=== PATIENT | female | born 2000 | race Caucasian/White ===

== ENCOUNTER 2024-09-19 21:39 | Emergency (ER) | payer OTHER, SELFPAY ==
--- OUTSIDE RECORDS SUMMARY | 2024-09-19 21:53 | XMS REPORT | Continuity of Care Document ---
Author Name Unknown Address [address] [facility] [address] [place] [address] Organization [facility] [place] Address [address] 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 Role Phone PCP, PATIENT DOES NOT HAVE A Primary Care Physic favio Unavailable Toño ART Attending Clinician Unavailable Toño ART Attending Clinician Unavailable JOSE C MORRIS Attending Clinician Unavailable JOSE C MORRIS Attending Clinician Unavailable Jose C Parada Attending Clinician [phone] DEIDRA CROWELL Attending Clinician Unavailable MERRY MAYORGA Attending Clinician UnavailMERRY Gates Attending Clinician UnavailMARIANNE Weiss Attending Clinician UnavailMarianne Reaves CNM Attending Clinician HIRO NG Attending Clinician Unavailable HIRO NG Attending Clinician Unavailable Hiro Ng MD Attending Clinician TITO CANALES Attending Clinician Unavail able Cody GOMEZ, Abilio Banks Attending Clinician [phone] Liborio GOMEZ, Yanni Attending Clinician + [phone] WINNIE PASCUAL Attending Clinician Unavailable Ally WHCNP, Tito Link Attending Clinician + RONNY GO Attending Clinician Unavailable Edmar GOMEZ, Ronny Wahl Attending Clinician [phone] Shantell Jacques RN Attending Clinician Unavailable ALAYNA PATEL Attending Clinician Unavailabl e Ultrasound, [facility] Attending Clinician Unavaila Alayna Martins MD Attending Clinician [phone] [facility] Unavailable CLAUDIO URBANO Attending Clinician Unavailable Risk, Szf-Gutlt-Vw/High Attending Clinician Unav ailable Claudio Morgan Attending Clinician + [phone] Tatiana Cruz MD Attending Clinician +[phone] TATIANA CRUZ Attending Clinician Unavailable Charisma Garnett Attending Clinician [phone] VANGIE LEBLANC Attending Clinician Unavailable [facility] Unavailable Vangie Akins Attending Clinician [phone], [facility] Room Attending Clinician Unavaildick waters Doctor Unassigned, [place] Attending Clinician U navailable KASIA CHIU Attending Clinician Unavailab Kasia Gallardo DO Attending Clinician [phone] RUDOLPH SÁNCHEZ Attending Clinician Unavailable Rudolph Sánchez DO Attending Clinician +[phone] EDIS HERNANDEZ Attending Clinician Unavailab [facility]ending Clinician Unava ilable Edis Ash Attending Clinician + [phone] Karen Flores DO Attending Clinician [phone] LORRIE HERNANDEZ Attending Clinician Unavailable Johnnie Toledo MD Attending Clinician +[phone] BEAU GRAY Attending Clinician Unavailable Beau Gray PA-C Attending Clinician [phone] Boris Rosario MD Attending Clinician [phone] BORIS ROSARIO Attending Clinician Unavailable Abdirahman TONG, Ian Attending Clinician Unavailab RONNY Daly Admitting Clinician Unavailable JOSE C MORRIS Admitting Clinician Unavailable DEIDRA CROWELL Admitting Clinician Unavailable HIRO NG Admitting Clinician Unavailable Hiro Ng MD Admitting Clinician [phone] Ronny Go MD Admitting Clinician +[phone] KASIA CHIU Admitting Clinician Unavailab RUDOLPH Ring Admitting Clinician Unavailable Payers Payer Name Policy Type Policy Number Effective Date Expirati on Date Source [facility] [id number] 2019 00:00:00 [place] [id number] 2019 00:00:00 MEDICAID PENDING PENDING 2019 00:00:00 ALLIED BENEFIT [id number] 2018 00:00:00 Problems Condition Name Condition Details Condition Category Status Onset Date Resolution Date Last Treatment Date Treating Clinician Comments Source Anemia of mother in , antepartum Anemia of mother in , antepartum Disease Active 01-05 00:00: 00 [facility] Anemia of mother in , antepartum Anemia of mother in , antepartum Disease Active 18 00:00: 00 [facility] Depression during Depression during Disease Active 6-06 00:00: 00 [facility] History of bipolar disorder History of bipolar disorder Disease Active 08-04 00:00: 00 Overview: Formattin g of this note might be different from the original. Not on meds reports stable mood [facility] History of depression History of depression Disease Active 08-04 00:00: 00 [facility] (spontaneo us vaginal delivery) (spontaneo us vaginal delivery) Disease Active 9-09 00:00: 00 [facility] Tobacco use in Tobacco use in Disease Active 3-11 00:00: 00 Overview: Formattin g of this note might be different from the original. Reports quit x1 week ago [facility] Nicotine vapor product user Nicotine vapor product user Disease Active 3-11 00:00: 00 [facility] Nicotine vapor product user Nicotine vapor product user Disease Active 311 00:00: 00 [facility] Short interval between pregnancie s affecting in first trimester, antepartum Short interval between pregnancie s affecting in first trimester, antepartum Disease Active 2-05 00:00: 00 [facility] Tobacco use complicati ng Tobacco use complicati ng Disease Active 2-05 00:00: 00 [facility] 39 weeks gestation of 39 weeks gestation of Disease Resolve d 2022-05 0-17 00:00: 00 2023-03-28 00:00:00 2023-03-28 10:11:38 [facility] Single live Single live Disease Resolve d 2022-05 0-17 00:00: 00 2023-03-28 00:00:00 2023-03-28 10:11:36 [facility] Family history of muscular dystrophy Family history of muscular dystrophy Disease Resolve d 4-04 00:00: 00 2023-03-28 00:00:00 2023-03-28 10:11:24 Overview: Formattin g of this note might be different from the original. Reports younger brother [facility] History of miscarriag e History of miscarriag e Disease Resolve d 2022-0 3-17 00:00: 00 2023-03-28 00:00:00 2023-03-28 10:11:20 [facility] (normal spontaneou s vaginal delivery) (normal spontaneou s vaginal delivery) Disease Resolve d 9-09 00:00: 00 2023-03-28 00:00:00 2023-03-28 10:11:28 [facility] Multiparit y Multiparit y Disease Resolve d 3-11 00:00: 00 2023-03-28 00:00:00 2023-03-28 10:11:30 [facility] Supervisio n of high-risk Supervisio n of high-risk Disease Resolve d 2018-0 2-05 00:00: 00 2023-03-06 00:00:00 2023-03-06 23:22:25 [facility] Single live Single live Disease Resolve d 2019-0 9-09 00:00: 00 2022-08-04 00:00:00 2022-08-04 09:03:46 [facility] Decreased movements in third trimester Decreased movements in third trimester Disease Resolve d 2019-0 9-07 00:00: 00 2022-08-04 00:00:00 2022-08-04 09:03:26 [facility] heart rate decelerati ons affecting management of mother heart rate decelerati ons affecting management of mother Disease Resolve d 2019-0 9-07 00:00: 00 2022-08-04 00:00:00 2022-08-04 09:03:30 [facility] Leg muscle spasm Leg muscle spasm Disease Resolve d 2019-0 9-02 00:00: 00 2022-08-04 00:00:00 2022-08-04 09:03:39 [facility] Fall Fall Disease Resolve d 2019-0 6-22 00:00: 00 2022-08-04 00:00:00 2022-08-04 09:03:28 [facility] 38 weeks gestation of 38 weeks gestation of Disease Resolve d 2018-0 8-13 00:00: 00 2022-08-04 00:00:00 2022-08-04 09:03:21 [facility] Rubella non-immune status, antepartum Rubella non-immune status, antepartum Disease Resolve d 2018-0 2-06 00:00: 00 2022-08-04 00:00:00 2022-08-04 09:03:42 Overview: Formattin g of this note might be different from the original. Address pp [facility] Susceptibl e to varicella (non-immun e), currently Susceptibl e to varicella (non-immun e), currently Disease Resolve d 2018-0 2-06 00:00: 00 2022-08-04 00:00:00 2022-08-04 09:03:48 Overview: Formattin g of this note might be different from the original. Address pp [facility] Short interval between pregnancie s affecting , antepartum Short interval between pregnancie s affecting , antepartum Disease Resolve d 2018-0 2-05 00:00: 00 2022-08-04 00:00:00 2022-08-04 09:03:56 [facility]mate in correction al facility Inmate in correction al facility Disease Resolve d 2-05 00:00: 00 2022-08-04 00:00:00 2022-08-04 09:03:37 [facility] Liveborn , of workman , born in hospital by vaginal delivery Liveborn infant, of workman , born in hospital by vaginal delivery Disease Resolve d 8-14 00:00: 00 2019-01-23 00:00:00 2019-01-23 10:05:51 [facility] Normal labor Normal labor Disease Resolve d 0 8-13 00:00: 00 2019-01-23 00:00:00 2019-01-23 10:05:51 [facility] Chlamydia infection affecting Chlamydia infection affecting Disease Resolve d 206 00:00: 00 2018-12-31 00:00:00 2018-12-31 19:45:26 Overview: Pending CHIARA at next visit, repeat at 36 weeks [facility] Miscarriag e Miscarriag e Disease Resolve d 2-05 00:00: 00 2018-12-31 00:00:00 2018-12-31 19:45:22 Overview: Outside facility beta --19 [id number] 07-09 [id number] 02-06 [id number] [facility] Allergies, Adverse Reactions, Alerts Allergy Name Allergy Type Status Severity Reaction(s) Onset Date Inactive Date Treating Clinician Comments Source NO KNOWN ALLERGIE S Drug Class Active [facility] Social History Social Habit Start Date Stop Date Quantity Comments Source ASSERTION 2022-06-19 00:00:00 [facility] Gender identity [facility] Alcoholic beverage intake 2023-11-27 00:00:00 2023-11-27 00:00:00 Current non-drinker of alcohol (finding) [facility] Alcohol intake 2023-03-28 00:00:00 2023-03-28 00:00:00 Current non-drinker of alcohol (finding) [facility] Exposure to SARS-CoV-2 (event) 2022-09-09 00:00:00 2022-09-19 12:39:00 Not sure [facility] Tobacco use and exposure 2022-08-04 00:00:00 2022-08-04 00:00:00 Smokeless tobacco non-user [facility] Tobacco Comment 2022-08-04 00:00:00 2022-08-04 00:00:00 Denies vaping [facility] History of Social function 2022-08-04 00:00:00 2022-08-04 00:00:00 [facility] History of tobacco use 2022-08-04 00:00:00 Cigarette Smoker [facility] Sex assigned at 2000 00:00:00 2000 00:00:00 [facility] Smoking Status Start Date Stop Date Source Ex-smoker 2022-08-04 00:00:00 2022-08-04 00:00:00 [facility] Smokes tobacco daily 2019-07-30 00:00:00 [facility] Medications Ordered Medication Name Filled Medication Name Start Date Stop Date Current Medication? Ordering Clinician Indication Dosage Frequency Signature (SIG) Comments Components Source acetaminoph en (TYLENOL) tablet 1,000 mg 12-25 05:00: 00 12-25 04:09 :00 No 1000mg 1,000 mg, Oral, ONCE NOW, 1 dose, On Sun12/26/23 at 0000, [facility] (ZOFRAN (PF)) [facility] 4 mg 11-27 18:00: 00 11-27 17:26 :00 No 4mg 4 mg, Slow IV Push, ONCE, 1 dose, On Sun11/28/23 at 1300, [facility] cefTRIAXone (ROCEPHIN) 1,000 mg in NaCl 0.9% (NS) 100 mL MINI-BAG 11-27 18:00: 00 11-27 17:56 :00 No 1000mg 1,000 mg, IV Piggyback, ONCE, 1 dose, On Sun11/28/23 at 1300, Administer over 30 Minutes, 100 mL, Reason for Anti-Infec tive: Empiric Therapy for Suspected Infection, Empiric Therapy Site: Urine, Duration of therapy: Once (ED) [facility] methylpredn isolone sod succ (SOLU-MEDRO L) injection 125 mg 11-27 16:15: 00 11-27 18:25 :00 No 125mg 125 mg, Slow IV Push, ONCE NOW, 1 dose, On Sun11/28/23 at 1115, [facility] NaCl 0.9% (NS) bolus infusion 1,000 mL 11-27 16:15: 00 11-27 18:54 :00 No 1000mL at 999 mL/hr, 1,000 mL, IV Infusion, ONCE, 1 dose, On Sun11/28/23 at 1115, [facility] sulfamethox azole-trime thoprim 800-160 mg per tablet 11-27 00:00: 00 Yes [id number] 1{tbl} Take 1 tablet by mouth every 12 (twelve) hours. [facility] meclizine 25 mg tablet 11-27 00:00: 00 Yes [id number] 25mg Take 1 tablet by mouth every 6 (six) hours. [facility] ibuprofen 600 mg tablet 11-27 00:00: 00 Yes [id number] 600mg Take 1 tablet by mouth every 6 (six) hours as needed for Pain (scale 4-6) or Temp > 38.5 C. [facility] methocarbam oL 750 mg tablet 11-27 00:00: 00 Yes [id number] 750mg Take 1 tablet by mouth 4 (four) times daily. [facility] rho(D) immune globulin (RHOGAM) syringe 300 mcg 2022-05 06:39: 09 Yes 300ug 300 mcg, Intramuscu lar, ONCE, For 1 dose, Conditiona l, Routine [facility] HYDROcodone -acetaminop hen (NORCO 5) 5-325 mg tablet 1 tablet 2022-05 06:39: 03 Yes 1{tbl} 1 tablet, Oral, Q6HPRN, Starting on Sun03/07/23 at 013, Until Discontinu ed, Routine, Pain (scale 7-10) [facility] ibuprofen (IBU) tablet 600 mg 2022-05 06:39: 03 Yes 600mg 600 mg, Oral, Q6HPRN, Starting on Sun03/07/23 at 013, Until Discontinu ed, Routine, Pain (scale 4-6) [facility] acetaminoph en (TYLENOL) tablet 650 mg 2022-05 06:39: 03 Yes 650mg 650 mg, Oral, Q6HPRN, Starting on Sun03/07/23 at 013, Until Discontinu ed, Routine, Pain (scale 1-3) [facility] diphenhydrA MINE (BENADRYL) tablet 25 mg 2022-05 06:39: 03 Yes 25mg 25 mg, Oral, Q6HPRN, Starting on Sun03/07/23 at 013, Until Discontinu ed, Routine, Sleep, Itching [facility] ondansetron (ZOFRAN (PF)) injection 4 mg 2022-05 06:39: 03 Yes 4mg 4 mg, Slow IV Push, Q8HPRN, Starting on Sun03/07/23 at 013, Until Discontinu ed, Routine, Nausea and Vomiting (N/V) [facility] simethicone (GAS RELIEF (SIMETHICON E)) chewable tablet 160 mg 2022-05 06:39: 03 Yes 160mg 160 mg, Oral, PC+HSPRN, Starting on Sun03/07/23 at 013, Until Discontinu ed, Routine, Gas [facility] docusate (COLACE) capsule 200 mg 2022-05 06:39: 03 Yes 200mg 200 mg, Oral, QDAILYPRN, Starting on Sun03/07/23 at 0139, Until Discontinu ed, Routine, Constipati on [facility] magnesium hydroxide (MILK OF MAGNESIA) 400 mg/5 mL suspension 30 mL 2022-05 06:39: 03 Yes 30mL 30 mL, Oral, QDAILYPRN, Starting on Sun03/07/23 at 0139, Until Discontinu ed, Routine, Constipati on [facility] benzocaine- menthol (DERMOPLAST ) 20-0.5 % topical spray 2022-05 06:39: 03 Yes Topical, PRN, Starting on Sun03/07/23 at 013, Until Discontinu ed, Routine, Perineum discomfort [facility] ropivacaine 0.2 % (NAROPIN (PF)) epidural infusion 2022-05 01:37: 00 03-07 05:41 :46 No Epidural, CONTINUOUS PRN, Starting on Sun03/06/23 at 7, Until Sun03/07/23 at 004, Routine, Intra-op [facility] lidocaine-e pinephrine (XYLOCAINE W/EPINEPHRI NE) 1.5 %-1:200,000 injection 2022-05 01:33: 00 03-07 05:41 :46 No Intraderma l, ONCE INTRA PROCEDURE, Starting on Sun03/06/23 at 2032, Until Sun03/07/23 at 40, Routine, Intra-op [facility] sodium citrate-cit yaz acid (BICITRA) 500-334 mg/5 mL solution 30 mL 2022-05 00:24: 33 03-07 01:15 :00 No 30mL 30 mL, Oral, PRE-PROCED URE ONCE, 1 dose, Starting on Sun03/06/23 at 1924, Until Sun03/06/23 at 2015, Routine, Surgery/Pr ocedure [facility] lactated ringers IV infusion 500 mL 2022-05 00:22: 05 03-07 06:39 :08 No 500mL at 999 mL/hr, 500 mL, IV Infusion, PRN - SEE INSTRUCTIO NS, Starting on Sun03/06/23 at 1922, Until Sun03/07/23 at 0139, Routine [facility] D5W-LR IV infusion 1,000 mL 2022-05 00:22: 05 03-07 06:39 :08 No 1000mL at 1-125 mL/hr, IV Infusion, TITRATE, Starting on Sun03/06/23 at 1922, Until Sun03/07/23 at 0139, Routine [facility] vitamin w/FA tablet 2022-05 00:00: 00 Yes [id number] 1{tbl} Take 1 tablet by mouth in the morning. [facility] docusate 100 mg capsule 2022-05 00:00: 00 Yes [id number] 200mg Take 2 capsules by mouth once daily as needed for Constipati on. [facility] ferrous sulfate 325 mg (65 mg iron) tablet 2022-05 00:00: 00 Yes [id number] 325mg Take 1 tablet by mouth in the morning. [facility] foLIC acid 1 mg tablet 2022-05 00:00: 00 Yes [id number] 1mg Take 1 tablet by mouth in the morning. [facility] ibuprofen 600 mg tablet 2022-05 00:00: 00 Yes [id number] 600mg Take 1 tablet by mouth every 6 (six) hours as needed (Pain). Take with food or milk. [facility] ferrous sulfate 325 mg (65 mg iron) tablet 01-05 00:00: 00 03-07 00:00 :00 No [id number] 325mg Take 1 tablet by mouth in the morning and 1 tablet in the evening. [facility] ascorbic acid, vitamin C, 500 mg tablet 01-05 00:00: 00 03-07 00:00 :00 No [id number] 500mg Take 1 tablet by mouth in the morning and 1 tablet at noon and 1 tablet in the evening. [facility] ARIPiprazol e 15 mg tablet 10-19 00:00: 00 Yes 15mg Take 1 tablet by mouth at bedtime. [facility] SERTraline 100 mg tablet 10-19 00:00: 00 Yes 100mg Take 1 tablet by mouth every morning. [facility] multivitami n ( VITAMIN) tablet 4-04 00:00: 00 Yes [id number] 1{tbl} Take 1 tablet by mouth in the morning. [facility] multivitami n ( VITAMIN) tablet 404 00:00: 00 03-07 00:00 :00 No [id number] 1{tbl} Take 1 tablet by mouth in the morning. [facility] multivitami n ( VITAMIN) tablet 08-04 00:00: 00 Yes [id number] 1{tbl} Take 1 tablet by mouth in the morning. [facility] multivitami n ( VITAMIN) tablet 08-04 00:00: 00 03-07 00:00 :00 No [id number] 1{tbl} Take 1 tablet by mouth in the morning. [facility] traMADoL (ULTRAM) tablet 50 mg 01-28 17:45: 00 01-29 05:44 :00 No 50mg 50 mg, Oral, ONCE, 1 dose, On 01/28/22 at 1245, Routine [facility] ketorolac (TORADOL) tablet 10 mg 01-28 16:30: 00 01-28 15:37 :00 No 10mg 10 mg, Oral, ONCE, 1 dose, On 01/28/22 at 1130, Routine [facility] methocarbam oL (ROBAXIN) tablet 1,000 mg 01-28 15:45: 00 01-28 15:37 :00 No 1000mg 1,000 mg, Oral, ONCE, 1 dose, On 01/28/22 at 1045, BRANDON [facility] cyclobenzap rine 5 mg tablet 01-28 00:00: 00 08-04 00:00 :00 No [id number] 5mg Take 1 tablet by mouth in the morning and 1 tablet at noon and 1 tablet in the evening. [facility] HYDROcodone -acetaminop hen (NORCO) 10-325 mg tablet 1 tablet 12-05 01:59: 00 12-05 01:59 :00 No 1{tbl} 1 tablet, Oral, ONCE, 1 dose, On Sun12/04/21 at 2100, Routine [facility] iopamidol (ISOVUE 370-500 mL) injection 60 mL 12-05 01:24: 00 12-05 01:30 :00 No [id number] 60mL 60 mL, Intravenou s, ONCE, 1 dose, On Sun12/04/21 at 2030, Routine [facility] naproxen sodium 550 mg tablet 12-04 00:00: 00 08-04 00:00 :00 No [id number] 550mg Take 1 tablet by mouth in the morning and 1 tablet in the evening. Take with meals. [facility] methylPREDN ISolone 4 mg tablets 12-04 00:00: 00 08-04 00:00 :00 No [id number] Take by mouth SEE-INSTRU CTIONS. follow package directions [facility] methocarbam oL 500 mg tablet 12-04 00:00: 00 12-10 04:59 :00 No [id number] 500mg Take 1 tablet by mouth in the morning and 1 tablet at noon and 1 tablet in the evening. Do all this for 5 days. [facility] iopamidol (ISOVUE 370-500 mL) injection 100 mL 07-26 01:45: 00 07-26 00:30 :00 No [id number] 100mL 100 mL, Intravenou s, ONCE, 1 dose, On Sun07/25/21 at 1945, Routine [facility] NaCl 0.9% (NS) bolus infusion 1,000 mL 07-25 23:45: 00 07-26 01:00 :00 No 1000mL at 999 mL/hr, 1,000 mL, IV Infusion, ONCE, 1 dose, On 07/25/21 at 1745, STAT [facility] ondansetron (ZOFRAN (PF)) injection 4 mg 07-25 23:45: 00 07-25 23:45 :00 No 4mg 4 mg, Slow IV Push, ONCE, 1 dose, On 07/25/21 at 1745, Routine [facility] ibuprofen 800 mg tablet 07-25 00:00: 00 12-04 00:00 :00 No [id number] 800mg Take 1 tablet by mouth every 8 (eight) hours as needed for Pain (scale 4-6). [facility] methocarbam oL (ROBAXIN) 500 mg tablet 07-25 00:00: 00 12-04 00:00 :00 No [id number] 500mg Take 1 tablet by mouth every 6 (six) hours as needed (MUSCLE SPASM). [facility] famotidine (PEPCID AC) tablet 40 mg 07-02 23:15: 00 07-02 22:17 :00 No 40mg 40 mg, Oral, ONCE, 1 dose, [facility] 07/02/21 [facility] 1715[facility] (BENADRYL) tablet 50 mg 07-02 23:15: 00 07-02 22:16 :00 No 50mg 50 mg, Oral, ONCE, 1 dose, On 07/02/21 at 1715, BRANDON [facility] methylpredn isolone sod succ (SOLU-MEDRO L) injection 125 mg 07-02 23:15: 00 07-02 22:17 :00 No 125mg 125 mg, Intramuscu lar, ONCE, 1 dose, On 07/02/21 at 1715, STAT [facility] famotidine (PEPCID) 40 mg tablet 07-02 00:00: 00 08-04 00:00 :00 No [id number] 40mg Take 1 tablet by mouth daily. [facility] methylPREDN ISolone (MEDROL, PAULETTE,) 4 mg tablets 212 00:00: 00 12-04 00:00 :00 No [id number] Take by mouth SEE-INSTRU CTIONS. follow package directions [facility] vit calc,iron,f olic ( VITAMIN ORAL) 01-27 12:20: 01-27 00:00 :00 No Take by mouth. [facility] varicella virus vaccine live (VARIVAX (PF)) injection 0.5 mL 01-27 12:11: 01-27 14:46 :00 No .5mL 0.5 mL, Subcutaneo us, ONCE-PRIOR TO DISCHARGE, 1 dose, Starting Sun01/28/20 at 0711, Until Sun01/28/20 at 0946, Routine, Give vaccine prior to discharge [facility] docusate calcium 240 mg capsule 01-27 00:00: 00 08-04 00:00 :00 No [id number] 240mg Take 1 capsule by mouth once daily as needed for Constipati on. [facility] vitamin w/FA tablet 01-27 00:00: 00 12-04 00:00 :00 No [id number] 1{tbl} Take 1 tablet by mouth daily. [facility] ferrous sulfate 325 mg (65 mg iron) tablet 01-27 00:00: 12-04 00:00 :00 No [id number] 325mg Take 1 tablet by mouth 2 (two) times daily. [facility] ibuprofen 600 mg tablet 01-27 00:00: 00 12-04 00:00 :00 No [id number] 600mg Take 1 tablet by mouth every 6 (six) hours as needed (Pain). Take with food or milk. [facility] rho(D) immune globulin (RHOGAM) syringe 300 mcg 01-26 14:30: 33 Yes 300ug 300 mcg, Intramuscu lar, ONCE, For 1 dose, Conditiona l, Routine [facility] simethicone (GAS RELIEF (SIMETHICON E)) chewable tablet 160 mg 01-26 14:30: 29 Yes 160mg 160 mg, Oral, PC+HSPRN, Starting Sun01/27/20 at 0930, Until Discontinu ed, Routine, Gas [facility] human papillomav vac,9-karol(P F) (GARDASIL-9 ) syringe 0.5 mL 01-26 14:30: 28 Yes .5mL 0.5 mL, Intramuscu lar, ONCE-PRIOR TO DISCHARGE, 1 dose, Starting Sun01/27/20 at 0930, Until Discontinu ed, Routine, Give vaccine prior to discharge [facility] ibuprofen (IBU) tablet 600 mg 01-26 14:30: 28 Yes 600mg 600 mg, Oral, Q6HPRN, Starting Sun01/27/20 at 0930, Until Discontinu ed, Routine, Pain (scale 4-6) [facility] diphenhydrA MINE (BENADRYL) tablet 25 mg 01-26 14:30: 28 Yes 25mg 25 mg, Oral, Q6HPRN, Starting Sun01/27/20 at 0930, Until Discontinu ed, Routine, Sleep, Itching [facility] diphenhydrA MINE-0.9 % sod.chlr (BENADRYL) 25 mg/50 mL piggyback 25 mg 01-26 14:30: 28 Yes 25mg 25 mg, IV Piggyback, Q6HPRN, Starting Sun01/27/20 at 0930, Until Discontinu ed, 50 mL [facility] ondansetron (ZOFRAN (PF)) injection 4 mg 01-26 14:30: 28 Yes 4mg 4 mg, Slow IV Push, Q8HPRN, Starting Sun01/27/20 at 0930, Until Discontinu ed, Routine, Nausea and Vomiting (N/V) [facility] docusate calcium (SURFAK) capsule 240 mg 01-26 14:30: 28 Yes 240mg 240 mg, Oral, QDAILYPRN, Starting Sun01/27/20 at 0930, Until Discontinu ed, Routine, Constipati on [facility] magnesium hydroxide (MILK OF MAGNESIA) 400 mg/5 mL suspension 30 mL 01-26 14:30: 28 Yes 30mL 30 mL, Oral, QDAILYPRN, Starting Sun01/27/20 at 0930, Until Discontinu ed, Routine, Constipati on [facility] benzocaine- menthol (DERMOPLAST ) 20-0.5 % topical spray 01-26 14:30: 28 Yes Topical, PRN, Starting Sun01/27/20 at 0930, Until Discontinu ed, Routine, Perineum discomfort [facility] [facility] acetaminoph en (TYLENOL) tablet 650 mg 01-26 14:30: 27 Yes 650mg 650 mg, Oral, Q6HPRN, Starting Sun01/27/20 at 0930, Until Discontinu ed, Routine, Pain (scale 1-3) [facility] ondansetron (ZOFRAN (PF)) injection 4 mg 01-26 11:12: 00 01-26 11:12 :00 No 4mg 4 mg, Slow IV Push, ONCE, 1 dose, Sun01/27/20 at 0615, Routine [facility] acetaminoph en (TYLENOL) tablet 650 mg 01-26 10:28: 26 Yes 650mg 650 mg, Oral, Q6HPRN, Starting Sun01/27/20 at 0528, Until Discontinu ed, Routine, Pain (scale 4-6) [facility] amnioinfusi on IV infusion via PUMP 0.9 NaCL 1,000 mL 01-26 09:00: 00 01-26 08:51 :00 No 1000mL at 750 mL/hr, Intrauteri ne, ONCE, 1 dose, Sun01/27/20 at 0400, BRANDON
Ma y give up 1000 mL. & nbsp;Infus e via Intrauteri ne Pressure Catheter.& nbsp;&nbsp ;The infusion is started at 750 mL/hr by volume controlled infusion pump. "The infusion pump should be clearly labeled AMNIOINF USION.&n bsp; Once 750 mL has been infused, the infusion may be dicsontinu ed or decreased to 100 mL/hr until the liter is complete.& nbsp;&nbsp ;Notify [employer] if uterine resting tone exceeds 25 mmHg at any time during the amnioinfus ion. Obst etrics (MARY) Aminoinfus ion Orders
[facility] LR 1000 mL + oxytocin 20 units IV Solution 01-26 01:48: 13 01-26 14:30 :34 No 2mU/min at 6-120 mL/hr, IV Infusion, TITRATE, Starting Sun01/26/20 at 2047, Until Sun01/27/20 at 0930, BRANDON [facility] sodium citrate-cit yaz acid (BICITRA) 500-334 mg/5 mL solution 30 mL 01-26 01:47: 23 01-26 05:08 :00 No 30mL 30 mL, Oral, PRE-PROCED URE ONCE, 1 dose, Starting Sun01/26/20 at 2046, Until Sun01/27/20 at 0008, Routine, Surgery/Pr ocedure [facility] lactated ringers IV infusion 500 mL 01-26 01:47: 22 01-26 14:30 :34 No 500mL at 999 mL/hr, 500 mL, IV Infusion, PRN - SEE INSTRUCTIO NS, Starting Sun01/26/20 at 2046, Until Sun01/27/20 at 0930, Routine [facility] PNV 67-iron ps-folate no.1-dha (VITAFOL ULTRA) 29 mg iron- 1 mg-200 mg Cap -22 00:00: 00 01-27 00:00 :00 No [id number] 1{each} Take 1 Each by mouth daily. [facility] vit/iron fum/folic ac (RIGHT STEP VITAMINS ORAL) 07-29 18:16: 53 07-29 00:00 :00 No Take by mouth. [facility] vit calc,iron,f olic ( VITAMIN ORAL) 07-29 14:05: 09 Yes Take by mouth. [facility] vit/iron fum/folic ac (RIGHT STEP VITAMINS ORAL) 01-23 15:05: 40 Yes Take by mouth. [facility] norgestimat e-ethinyl estradiol 0.25-35 mg-mcg per tablet 01-23 00:00: 00 07-29 00:00 :00 No [id number] 1{tbl} Take 1 tablet by mouth daily. [facility] acetaminoph en (TYLENOL) tablet 1,000 mg 01-04 09:00: 00 01-04 07:49 :00 No 1000mg 1,000 mg, Oral, ONCE, 1 dose, 01/04/19 at 0400, BRANDON [facility] cephALEXin (KEFLEX) 500 mg capsule 01-04 00:00: 00 07-29 00:00 :00 No [id number] 500mg Take 1 capsule by mouth 2 (two) times daily. [facility] vit/iron fum/folic ac (RIGHT STEP VITAMINS ORAL) 01-02 21:39: 41 Yes Take by mouth. [facility] measles, mumps + rubella vac (M-M-R II) 1,000-12,50 0 TCID50/0.5 mL injection 0.5 mL 01-02 13:15: 00 01-02 14:02 :00 No .5mL 0.5 mL, Subcutaneo us, ONCE, 1 dose, Jocelyne 01/02/19 at 0815, Routine [facility] vitamin w/FA tablet 01-02 00:00: 00 07-29 00:00 :00 No [id number] 102 1{tbl} Take 1 tablet by mouth daily. [facility] docusate calcium 240 mg capsule 01-02 00:00: 00 07-29 00:00 :00 No [id number] 102 240mg Take 1 capsule by mouth once daily as needed for Constipati on. [facility] ferrous sulfate 325 mg (65 mg iron) tablet 01-02 00:00: 00 07-29 00:00 :00 No [id number] 102 325mg Take 1 tablet by mouth daily. [facility] ibuprofen 600 mg tablet 01-02 00:00: 00 07-29 00:00 :00 No [id number] 102 600mg Take 1 tablet by mouth every 6 (six) hours as needed for Pain (scale 1-3) or Pain (scale 4-6) (Pain). Take with food or milk. [facility] LR 1000 mL + oxytocin 20 units IV Solution 01-01 08:15: 00 01-01 07:38 :27 No at 999 mL/hr, IV Infusion, ONCE, 1 dose, Sun01/01/19 at 0315, Routine [facility] simethicone (GAS RELIEF) chewable tablet 160 mg 01-01 07:38: 23 Yes 160mg 160 mg, Oral, PC+HSPRN, Starting Sun01/01/19 at 023, Until Discontinu ed, Routine, Gas [facility] HYDROcodone -acetaminop hen (NORCO 5) 5-325 mg tablet 1 tablet 01-01 07:38: 22 Yes 1{tbl} 1 tablet, Oral, Q6HPRN, Starting Sun01/01/19 at 023, Until Discontinu ed, Routine, Pain (scale 7-10) [facility] acetaminoph en (TYLENOL) tablet 650 mg 01-01 07:38: 22 Yes 650mg 650 mg, Oral, Q6HPRN, Starting Sun01/01/19 at 023, Until Discontinu ed, Routine, Pain (scale 1-3) [facility] ibuprofen (IBU) tablet 600 mg 01-01 07:38: 22 Yes 600mg 600 mg, Oral, Q6HPRN, Starting Sun01/01/19 at 023, Until Discontinu ed, Routine, Pain (scale 4-6) [facility] diphenhydrA MINE (BENADRYL) tablet 25 mg 01-01 07:38: 22 Yes 25mg 25 mg, Oral, Q6HPRN, Starting Sun01/01/19 at 0238, Until Discontinu ed, Routine, Sleep, Itching [facility] ondansetron (ZOFRAN (PF)) injection 4 mg 01-01 07:38: 22 Yes 4mg 4 mg, Slow IV Push, Q8HPRN, Starting Sun01/01/19 at 237, Until Discontinu ed, Routine, Nausea and Vomiting (N/V) [facility] docusate calcium (SURFAK) capsule 240 mg 01-01 07:38: 22 Yes 240mg 240 mg, Oral, QDAILYPRN, Starting Sun01/01/19 at 237, Until Discontinu ed, Routine, Constipati on [facility] magnesium hydroxide (MILK OF MAGNESIA) 400 mg/5 mL suspension 30 mL 01-01 07:38: 22 Yes 30mL 30 mL, Oral, QDAILYPRN, Starting Sun01/01/19 at 237, Until Discontinu ed, Routine, Constipati on [facility] benzocaine- menthol (DERMOPLAST ) 20-0.5 % topical spray 01-01 07:38: 22 Yes Topical, PRN, Starting Sun01/01/19 at 237, Until Discontinu ed, Routine, Perineum discomfort [facility] lactated ringers IV infusion 500 mL 01-01 01:29: 16 01-01 07:38 :27 No 500mL at 999 mL/hr, 500 mL, IV Infusion, PRN - SEE AGNIESZKA TEMPLETON, Starting Sun12/31/18 at 2028, Until Sun01/01/19 at 237, Routine [facility] D5W-LR IV infusion 1,000 mL 01-01 00:45: 00 01-01 07:38 :27 No 1000mL at 125 mL/hr, IV Infusion, CONTINUOUS , Starting Sun12/31/18 at 1945, Until Sun01/01/19 at 237, Routine [facility] FENTanyl PF (SUBLIMAZE (PF)) injection 100 mcg 12-31 23:36: 39 01-01 07:38 :27 No 100ug 100 mcg, Slow IV Push, Q1HPRN, Starting Sun12/31/18 at 1836, Until Sun01/01/19 at 0238, Routine, Pain (scale 4-6), Pain (scale 7-10) [facility] ferrous sulfate (IRON, FERROUS SULFATE,) 325 mg (65 mg iron) tablet 11-01 00:00: 00 07-29 00:00 :00 No [id number] 325mg Take 1 tablet by mouth 2 (two) times daily. [facility] vit/iron fum/folic ac (RIGHT STEP VITAMINS ORAL) 10-31 15:51: 52 Yes Take by mouth. [facility] Immunizations Ordered Immunization Name Filled Immunization Name Date Status Comments Source TDAP (ADACEL) VACCINE 2023-12-25 23:06:00 Completed [facility] MMR 2023-12-25 23:06:00 Completed [facility] Influenza Virus Vaccine Quad .5 mL IM 6+ MO (FLUZONE/FLULAVAL/FLU ARIX) 2023-12-25 23:06:00 Completed [facility] Varicella (varivax)(chicken pox) 2023-12-25 23:06:00 Completed [facility] DTaP, Unspecified Formulation 2023-12-25 23:06:00 Completed [facility] Flu Trivalent 2023-12-25 23:06:00 Completed [facility] Influenza Virus Vaccine - Whole 2023-12-25 23:06:00 Completed [facility] HEPATITIS A 2023-12-25 23:06:00 Completed [facility] Hep B, Adol or Pedi Dosage 2023-12-25 23:06:00 Completed [facility] HIB 4 Dose Schedule 2023-12-25 23:06:00 Completed [facility] Meningococcal Polysaccharide (groups A, C, Y and W-135) conjugate vaccine (MCV4P) 2023-12-25 23:06:00 Completed [facility] Pneumococcal 7 Conjugate, PCV7 (Prevnar7) 2023-12-25 23:06:00 Completed [facility] IPV 2023-12-25 23:06:00 Completed [facility] DTaP, Unspecified Formulation 2023-11-28 10:05:00 Completed [facility] TDAP (ADACEL) VACCINE 2023-03-28 09:45:00 Completed [facility] MMR 2023-03-28 09:45:00 Completed [facility] Influenza Virus Vaccine Quad .5 mL IM 6+ MO (FLUZONE/FLULAVAL/FLU ARIX) 2023-03-28 09:45:00 Completed [facility] Varicella (varivax)(chicken pox) 2023-03-28 09:45:00 Completed [facility] DTaP, Unspecified Formulation 2023-03-28 09:45:00 Completed [facility] Flu Trivalent 2023-03-28 09:45:00 Completed [facility] Influenza Virus Vaccine - Whole 2023-03-28 09:45:00 Completed [facility] HEPATITIS A 2023-03-28 09:45:00 Completed [facility] Hep B, Adol or Pedi Dosage 2023-03-28 09:45:00 Completed [facility] HIB 4 Dose Schedule 2023-03-28 09:45:00 Completed [facility] Meningococcal Polysaccharide (groups A, C, Y and W-135) conjugate vaccine (MCV4P) 2023-03-28 09:45:00 Completed [facility] Pneumococcal 7 Conjugate, PCV7 (Prevnar7) 2023-03-28 09:45:00 Completed [facility] IPV 2023-03-28 09:45:00 Completed [facility] TDAP (ADACEL) VACCINE 2023-03-06 20:15:00 Completed [facility] MMR 2023-03-06 20:15:00 Completed [facility] Influenza Virus Vaccine Quad .5 mL IM 6+ MO (FLUZONE/FLULAVAL/FLU ARIX) 2023-03-06 20:15:00 Completed [facility] Varicella (varivax)(chicken pox) 2023-03-06 20:15:00 Completed [facility] DTaP, Unspecified Formulation 2023-03-06 20:15:00 Completed [facility] Flu Trivalent 2023-03-06 20:15:00 Completed [facility] Influenza Virus Vaccine - Whole 2023-03-06 20:15:00 Completed [facility] HEPATITIS A 2023-03-06 20:15:00 Completed [facility] Hep B, Adol or Pedi Dosage 2023-03-06 20:15:00 Completed [facility] HIB 4 Dose Schedule 2023-03-06 20:15:00 Completed [facility] Meningococcal Polysaccharide (groups A, C, Y and W-135) conjugate vaccine (MCV4P) 2023-03-06 20:15:00 Completed [facility] Pneumococcal 7 Conjugate, PCV7 (Prevnar7) 2023-03-06 20:15:00 Completed [facility] IPV 2023-03-06 20:15:00 Completed [facility] TDAP (ADACEL) VACCINE 2023-03-06 17:46:00 Completed [facility] MMR 2023-03-06 17:46:00 Completed [facility] Influenza Virus Vaccine Quad .5 mL IM 6+ MO (FLUZONE/FLULAVAL/FLU ARIX) 2023-03-06 17:46:00 Completed [facility] Varicella (varivax)(chicken pox) 2023-03-06 17:46:00 Completed [facility] DTaP, Unspecified Formulation 2023-03-06 17:46:00 Completed [facility] Flu Trivalent 2023-03-06 17:46:00 Completed [facility] Influenza Virus Vaccine - Whole 2023-03-06 17:46:00 Completed [facility] HEPATITIS A 2023-03-06 17:46:00 Completed [facility] Hep B, Adol or Pedi Dosage 2023-03-06 17:46:00 Completed [facility] HIB 4 Dose Schedule 2023-03-06 17:46:00 Completed [facility] Meningococcal Polysaccharide (groups A, C, Y and W-135) conjugate vaccine (MCV4P) 2023-03-06 17:46:00 Completed [facility] Pneumococcal 7 Conjugate, PCV7 (Prevnar7) 2023-03-06 17:46:00 Completed [facility] IPV 2023-03-06 17:46:00 Completed [facility] TDAP (ADACEL) VACCINE 2023-03-06 00:00:00 Completed [facility] MMR 2023-03-06 00:00:00 Completed [facility] Influenza Virus Vaccine Quad .5 mL IM 6+ MO (FLUZONE/FLULAVAL/FLU ARIX) 2023-03-06 00:00:00 Completed [facility] Varicella (varivax)(chicken pox) 2023-03-06 00:00:00 Completed [facility] DTaP, Unspecified Formulation 2023-03-06 00:00:00 Completed [facility] Flu Trivalent 2023-03-06 00:00:00 Completed [facility] Influenza Virus Vaccine - Whole 2023-03-06 00:00:00 Completed [facility] HEPATITIS A 2023-03-06 00:00:00 Completed [facility] Hep B, Adol or Pedi Dosage 2023-03-06 00:00:00 Completed [facility] HIB 4 Dose Schedule 2023-03-06 00:00:00 Completed [facility] Meningococcal Polysaccharide (groups A, C, Y and W-135) conjugate vaccine (MCV4P) 2023-03-06 00:00:00 Completed [facility] Pneumococcal 7 Conjugate, PCV7 (Prevnar7) 2023-03-06 00:00:00 Completed [facility] IPV 2023-03-06 00:00:00 Completed [facility] TDAP (ADACEL) VACCINE 2023-02-22 00:00:00 Completed [facility] MMR 2023-02-22 00:00:00 Completed [facility] Influenza Virus Vaccine Quad .5 mL IM 6+ MO (FLUZONE/FLULAVAL/FLU ARIX) 2023-02-22 00:00:00 Completed [facility] Varicella (varivax)(chicken pox) 2023-02-22 00:00:00 Completed [facility] DTaP, Unspecified Formulation 2023-02-22 00:00:00 Completed [facility] Flu Trivalent 2023-02-22 00:00:00 Completed [facility] Influenza Virus Vaccine - Whole 2023-02-22 00:00:00 Completed [facility] HEPATITIS A 2023-02-22 00:00:00 Completed [facility] Hep B, Adol or Pedi Dosage 2023-02-22 00:00:00 Completed [facility] HIB 4 Dose Schedule 2023-02-22 00:00:00 Completed [facility] Meningococcal Polysaccharide (groups A, C, Y and W-135) conjugate vaccine (MCV4P) 2023-02-22 00:00:00 Completed [facility] Pneumococcal 7 Conjugate, PCV7 (Prevnar7) 2023-02-22 00:00:00 Completed [facility] IPV 2023-02-22 00:00:00 Completed [facility] TDAP (ADACEL) VACCINE 2023-02-21 07:45:00 Completed [facility] MMR 2023-02-21 07:45:00 Completed [facility] Influenza Virus Vaccine Quad .5 mL IM 6+ MO (FLUZONE/FLULAVAL/FLU ARIX) 2023-02-21 07:45:00 Completed [facility] Varicella (varivax)(chicken pox) 2023-02-21 07:45:00 Completed [facility] DTaP, Unspecified Formulation 2023-02-21 07:45:00 Completed [facility] Flu Trivalent 2023-02-21 07:45:00 Completed [facility] Influenza Virus Vaccine - Whole 2023-02-21 07:45:00 Completed [facility] HEPATITIS A 2023-02-21 07:45:00 Completed [facility] Hep B, Adol or Pedi Dosage 2023-02-21 07:45:00 Completed [facility] HIB 4 Dose Schedule 2023-02-21 07:45:00 Completed [facility] Meningococcal Polysaccharide (groups A, C, Y and W-135) conjugate vaccine (MCV4P) 2023-02-21 07:45:00 Completed [facility] Pneumococcal 7 Conjugate, PCV7 (Prevnar7) 2023-02-21 07:45:00 Completed [facility] IPV 2023-02-21 07:45:00 Completed [facility] TDAP (ADACEL) VACCINE 2023-02-20 00:00:00 Completed [facility] MMR 2023-02-20 00:00:00 Completed [facility] Influenza Virus Vaccine Quad .5 mL IM 6+ MO (FLUZONE/FLULAVAL/FLU ARIX) 2023-02-20 00:00:00 Completed [facility] Varicella (varivax)(chicken pox) 2023-02-20 00:00:00 Completed [facility] DTaP, Unspecified Formulation 2023-02-20 00:00:00 Completed [facility] Flu Trivalent 2023-02-20 00:00:00 Completed [facility] Influenza Virus Vaccine - Whole 2023-02-20 00:00:00 Completed [facility] HEPATITIS A 2023-02-20 00:00:00 Completed [facility] Hep B, Adol or Pedi Dosage 2023-02-20 00:00:00 Completed [facility] HIB 4 Dose Schedule 2023-02-20 00:00:00 Completed [facility] Meningococcal Polysaccharide (groups A, C, Y and W-135) conjugate vaccine (MCV4P) 2023-02-20 00:00:00 Completed [facility] Pneumococcal 7 Conjugate, PCV7 (Prevnar7) 2023-02-20 00:00:00 Completed [facility] IPV 2023-02-20 00:00:00 Completed [facility] TDAP (ADACEL) VACCINE 2023-02-07 15:15:00 Completed [facility] MMR 2023-02-07 15:15:00 Completed [facility] Influenza Virus Vaccine Quad .5 mL IM 6+ MO (FLUZONE/FLULAVAL/FLU ARIX) 2023-02-07 15:15:00 Completed [facility] Varicella (varivax)(chicken pox) 2023-02-07 15:15:00 Completed [facility] DTaP, Unspecified Formulation 2023-02-07 15:15:00 Completed [facility] Flu Trivalent 2023-02-07 15:15:00 Completed [facility] Influenza Virus Vaccine - Whole 2023-02-07 15:15:00 Completed [facility] HEPATITIS A 2023-02-07 15:15:00 Completed [facility] Hep B, Adol or Pedi Dosage 2023-02-07 15:15:00 Completed [facility] HIB 4 Dose Schedule 2023-02-07 15:15:00 Completed [facility] Meningococcal Polysaccharide (groups A, C, Y and W-135) conjugate vaccine (MCV4P) 2023-02-07 15:15:00 Completed [facility] Pneumococcal 7 Conjugate, PCV7 (Prevnar7) 2023-02-07 15:15:00 Completed [facility] IPV 2023-02-07 15:15:00 Completed [facility] TDAP 2022-12-27 00:00:00 Completed [facility] TDAP 2022-12-27 00:00:00 Completed [facility] TDAP 2022-12-27 00:00:00 Completed [facility] TDAP 2022-12-27 00:00:00 Completed [facility] TDAP 2022-12-27 00:00:00 Completed [facility] TDAP 2022-12-27 00:00:00 Completed [facility] TDAP 2022-12-27 00:00:00 Completed [facility] TDAP 2022-12-27 00:00:00 Completed [facility] TDAP 2022-12-27 00:00:00 Completed [facility] TDAP 2022-12-27 00:00:00 Completed [facility] Varicella (varivax)(chicken pox) 2020-01-28 00:00:00 Completed [facility] Varicella (varivax)(chicken pox) 2020-01-28 00:00:00 Completed [facility] Varicella (varivax)(chicken pox) 2020-01-28 00:00:00 Completed [facility] Varicella (varivax)(chicken pox) 2020-01-28 00:00:00 Completed [facility] Varicella (varivax)(chicken pox) 2020-01-28 00:00:00 Completed [facility] Varicella (varivax)(chicken pox) 2020-01-28 00:00:00 Completed [facility] Varicella (varivax)(chicken pox) 2020-01-28 00:00:00 Completed [facility] Varicella (varivax)(chicken pox) 2020-01-28 00:00:00 Completed [facility] Varicella (varivax)(chicken pox) 2020-01-28 00:00:00 Completed [facility] Varicella (varivax)(chicken pox) 2020-01-28 00:00:00 Completed [facility] Varicella (varivax)(chicken pox) 2020-01-28 00:00:00 Completed [facility] Varicella (varivax)(chicken pox) 2020-01-28 00:00:00 Completed [facility] Varicella (varivax)(chicken pox) 2020-01-28 00:00:00 Completed [facility] Varicella (varivax)(chicken pox) 2020-01-28 00:00:00 Completed [facility] Varicella (varivax)(chicken pox) 2020-01-28 00:00:00 Completed [facility] Varicella (varivax)(chicken pox) 2020-01-28 00:00:00 Completed [facility] Varicella (varivax)(chicken pox) 2020-01-28 00:00:00 Completed [facility] Varicella (varivax)(chicken pox) 2020-01-28 00:00:00 Completed [facility] Varicella (varivax)(chicken pox) 2020-01-28 00:00:00 Completed [facility] Varicella (varivax)(chicken pox) 2020-01-28 00:00:00 Completed [facility] Varicella (varivax)(chicken pox) 2020-01-28 00:00:00 Completed [facility] Varicella (varivax)(chicken pox) 2020-01-28 00:00:00 Completed [facility] Varicella (varivax)(chicken pox) 2020-01-28 00:00:00 Completed [facility] Varicella (varivax)(chicken pox) 2020-01-28 00:00:00 Completed [facility] Varicella (varivax)(chicken pox) 2020-01-28 00:00:00 Completed [facility] Varicella (varivax)(chicken pox) 2020-01-28 00:00:00 Completed [facility] Varicella (varivax)(chicken pox) 2020-01-28 00:00:00 Completed [facility] Varicella (varivax)(chicken pox) 2020-01-28 00:00:00 Completed [facility] Varicella (varivax)(chicken pox) 2020-01-28 00:00:00 Completed [facility] Varicella (varivax)(chicken pox) 2020-01-28 00:00:00 Completed [facility] Varicella (varivax)(chicken pox) 2020-01-28 00:00:00 Completed [facility] Varicella (varivax)(chicken pox) 2020-01-28 00:00:00 Completed [facility] Varicella (varivax)(chicken pox) 2020-01-28 00:00:00 Completed [facility] Varicella (varivax)(chicken pox) 2020-01-28 00:00:00 Completed [facility] TDAP 2019-11-24 00:00:00 Completed [facility] TDAP 2019-11-24 00:00:00 Completed [facility] TDAP 2019-11-24 00:00:00 Completed [facility] TDAP 2019-11-24 00:00:00 Completed [facility] TDAP 2019-11-24 00:00:00 Completed [facility] TDAP 2019-11-24 00:00:00 Completed [facility] TDAP 2019-11-24 00:00:00 Completed [facility] TDAP 2019-11-24 00:00:00 Completed [facility] TDAP 2019-11-24 00:00:00 Completed [facility] TDAP 2019-11-24 00:00:00 Completed [facility] TDAP 2019-11-24 00:00:00 Completed [facility] TDAP 2019-11-24 00:00:00 Completed [facility] TDAP 2019-11-24 00:00:00 Completed [facility] TDAP 2019-11-24 00:00:00 Completed [facility] TDAP 2019-11-24 00:00:00 Completed [facility] TDAP 2019-11-24 00:00:00 Completed [facility] TDAP 2019-11-24 00:00:00 Completed [facility] TDAP 2019-11-24 00:00:00 Completed [facility] TDAP 2019-11-24 00:00:00 Completed [facility] TDAP 2019-11-24 00:00:00 Completed [facility] TDAP 2019-11-24 00:00:00 Completed [facility] TDAP 2019-11-24 00:00:00 Completed [facility] TDAP 2019-11-24 00:00:00 Completed [facility] TDAP 2019-11-24 00:00:00 Completed [facility] TDAP 2019-11-24 00:00:00 Completed [facility] TDAP 2019-11-24 00:00:00 Completed [facility] TDAP 2019-11-24 00:00:00 Completed [facility] TDAP 2019-11-24 00:00:00 Completed [facility] TDAP 2019-11-24 00:00:00 Completed [facility] TDAP 2019-11-24 00:00:00 Completed [facility] TDAP 2019-11-24 00:00:00 Completed [facility] TDAP 2019-11-24 00:00:00 Completed [facility] TDAP 2019-11-24 00:00:00 Completed [facility] TDAP 2019-11-24 00:00:00 Completed [facility] TDAP 2019-11-24 00:00:00 Completed [facility] TDAP 2019-11-24 00:00:00 Completed [facility] TDAP 2019-11-24 00:00:00 Completed [facility] TDAP 2019-11-24 00:00:00 Completed [facility] TDAP 2019-11-24 00:00:00 Completed [facility] TDAP 2019-11-24 00:00:00 Completed [facility] Influenza Virus Vaccine Quad .5 mL IM 6+ MO 2019-07-30 00:00:00 Completed [facility] Influenza Virus Vaccine Quad .5 mL IM 6+ MO 2019-07-30 00:00:00 Completed [facility] Influenza Virus Vaccine Quad .5 mL IM 6+ MO 2019-07-30 00:00:00 Completed [facility] Influenza Virus Vaccine Quad .5 mL IM 6+ MO 2019-07-30 00:00:00 Completed [facility] Influenza Virus Vaccine Quad .5 mL IM 6+ MO 2019-07-30 00:00:00 Completed [facility] Influenza Virus Vaccine Quad .5 mL IM 6+ MO 2019-07-30 00:00:00 Completed [facility] Influenza Virus Vaccine Quad .5 mL IM 6+ MO 2019-07-30 00:00:00 Completed [facility] Influenza Virus Vaccine Quad .5 mL IM 6+ MO 2019-07-30 00:00:00 Completed [facility] Influenza Virus Vaccine Quad .5 mL IM 6+ MO 2019-07-30 00:00:00 Completed [facility] Influenza Virus Vaccine Quad .5 mL IM 6+ MO 2019-07-30 00:00:00 Completed [facility] Influenza Virus Vaccine Quad .5 mL IM 6+ MO 2019-07-30 00:00:00 Completed [facility] Influenza Virus Vaccine Quad .5 mL IM 6+ MO 2019-07-30 00:00:00 Completed [facility] Influenza Virus Vaccine Quad .5 mL IM 6+ MO 2019-07-30 00:00:00 Completed [facility] Influenza Virus Vaccine Quad .5 mL IM 6+ MO 2019-07-30 00:00:00 Completed [facility] Influenza Virus Vaccine Quad .5 mL IM 6+ MO 2019-07-30 00:00:00 Completed [facility] Influenza Virus Vaccine Quad .5 mL IM 6+ MO 2019-07-30 00:00:00 Completed [facility] Influenza Virus Vaccine Quad .5 mL IM 6+ MO 2019-07-30 00:00:00 Completed [facility] Influenza Virus Vaccine Quad .5 mL IM 6+ MO 2019-07-30 00:00:00 Completed [facility] Influenza Virus Vaccine Quad .5 mL IM 6+ MO 2019-07-30 00:00:00 Completed [facility] Influenza Virus Vaccine Quad .5 mL IM 6+ MO 2019-07-30 00:00:00 Completed [facility] Influenza Virus Vaccine Quad .5 mL IM 6+ MO 2019-07-30 00:00:00 Completed [facility] Influenza Virus Vaccine Quad .5 mL IM 6+ MO (FLUZONE/FLULAVAL/FLU ARIX) 2019-07-30 00:00:00 Completed [facility] Influenza Virus Vaccine Quad .5 mL IM 6+ MO (FLUZONE/FLULAVAL/FLU ARIX) 2019-07-30 00:00:00 Completed [facility] Influenza Virus Vaccine Quad .5 mL IM 6+ MO (FLUZONE/FLULAVAL/FLU ARIX) 2019-07-30 00:00:00 Completed [facility] Influenza Virus Vaccine Quad .5 mL IM 6+ MO 2019-07-30 00:00:00 Completed [facility] Influenza Virus Vaccine Quad .5 mL IM 6+ MO 2019-07-30 00:00:00 Completed [facility] Influenza Virus Vaccine Quad .5 mL IM 6+ MO 2019-07-30 00:00:00 Completed [facility] Influenza Virus Vaccine Quad .5 mL IM 6+ MO 2019-07-30 00:00:00 Completed [facility] Influenza Virus Vaccine Quad .5 mL IM 6+ MO 2019-07-30 00:00:00 Completed [facility] Influenza Virus Vaccine Quad .5 mL IM 6+ MO 2019-07-30 00:00:00 Completed [facility] Influenza Virus Vaccine Quad .5 mL IM 6+ MO 2019-07-30 00:00:00 Completed [facility] Influenza Virus Vaccine Quad .5 mL IM 6+ MO 2019-07-30 00:00:00 Completed [facility] Influenza Virus Vaccine Quad .5 mL IM 6+ MO 2019-07-30 00:00:00 Completed [facility] Influenza Virus Vaccine Quad .5 mL IM 6+ MO 2019-07-30 00:00:00 Completed [facility] Influenza Virus Vaccine Quad .5 mL IM 6+ MO 2019-07-30 00:00:00 Completed [facility] Influenza Virus Vaccine Quad .5 mL IM 6+ MO 2019-07-30 00:00:00 Completed [facility] Influenza Virus Vaccine Quad .5 mL IM 6+ MO 2019-07-30 00:00:00 Completed [facility] Influenza Virus Vaccine Quad .5 mL IM 6+ MO 2019-07-30 00:00:00 Completed [facility] Influenza Virus Vaccine Quad .5 mL IM 6+ MO 2019-07-30 00:00:00 Completed [facility] Influenza Virus Vaccine Quad .5 mL IM 6+ MO 2019-07-30 00:00:00 Completed [facility] Influenza Virus Vaccine Quad .5 mL IM 6+ MO 2019-07-30 00:00:00 Completed [facility] Influenza Virus Vaccine Quad .5 mL IM 6+ MO 2019-07-30 00:00:00 Completed [facility] Influenza Virus Vaccine Quad .5 mL IM 6+ MO 2019-07-30 00:00:00 Completed [facility] Influenza Virus Vaccine Quad .5 mL IM 6+ MO 2019-07-30 00:00:00 Completed [facility] Influenza Virus Vaccine Quad .5 mL IM 6+ MO 2019-07-30 00:00:00 Completed [facility] Influenza Virus Vaccine Quad .5 mL IM 6+ MO 2019-07-30 00:00:00 Completed [facility] MMR 2019-01-02 00:00:00 Completed [facility] MMR 2019-01-02 00:00:00 Completed [facility] MMR 2019-01-02 00:00:00 Completed [facility] MMR 2019-01-02 00:00:00 Completed [facility] MMR 2019-01-02 00:00:00 Completed [facility] MMR 2019-01-02 00:00:00 Completed [facility] MMR 2019-01-02 00:00:00 Completed [facility] MMR 2019-01-02 00:00:00 Completed [facility] MMR 2019-01-02 00:00:00 Completed [facility] MMR 2019-01-02 00:00:00 Completed [facility] MMR 2019-01-02 00:00:00 Completed [facility] MMR 2019-01-02 00:00:00 Completed [facility] MMR 2019-01-02 00:00:00 Completed [facility] MMR 2019-01-02 00:00:00 Completed [facility] MMR 2019-01-02 00:00:00 Completed [facility] MMR 2019-01-02 00:00:00 Completed [facility] MMR 2019-01-02 00:00:00 Completed [facility] MMR 2019-01-02 00:00:00 Completed [facility] MMR 2019-01-02 00:00:00 Completed [facility] MMR 2019-01-02 00:00:00 Completed [facility] MMR 2019-01-02 00:00:00 Completed [facility] MMR 2019-01-02 00:00:00 Completed [facility] MMR 2019-01-02 00:00:00 Completed [facility] MMR 2019-01-02 00:00:00 Completed [facility] MMR 2019-01-02 00:00:00 Completed [facility] MMR 2019-01-02 00:00:00 Completed [facility] MMR 2019-01-02 00:00:00 Completed [facility] MMR 2019-01-02 00:00:00 Completed [facility] MMR 2019-01-02 00:00:00 Completed [facility] MMR 2019-01-02 00:00:00 Completed [facility] MMR 2019-01-02 00:00:00 Completed [facility] MMR 2019-01-02 00:00:00 Completed [facility] MMR 2019-01-02 00:00:00 Completed [facility] MMR 2019-01-02 00:00:00 Completed [facility] MMR 2019-01-02 00:00:00 Completed [facility] MMR 2019-01-02 00:00:00 Completed [facility] MMR 2019-01-02 00:00:00 Completed [facility] MMR 2019-01-02 00:00:00 Completed [facility] MMR 2019-01-02 00:00:00 Completed [facility] MMR 2019-01-02 00:00:00 Completed [facility] MMR 2019-01-02 00:00:00 Completed [facility] MMR 2019-01-02 00:00:00 Completed [facility] MMR 2019-01-02 00:00:00 Completed [facility] MMR 2019-01-02 00:00:00 Completed [facility] MMR 2019-01-02 00:00:00 Completed [facility] MMR 2019-01-02 00:00:00 Completed [facility] MMR 2019-01-02 00:00:00 Completed [facility] MMR 2019-01-02 00:00:00 Completed [facility] MMR 2019-01-02 00:00:00 Completed [facility] MMR 2019-01-02 00:00:00 Completed [facility] MMR 2019-01-02 00:00:00 Completed [facility] MMR 2019-01-02 00:00:00 Completed [facility] MMR 2019-01-02 00:00:00 Completed [facility] TDAP (ADACEL) VACCINE 2018-10-10 00:00:00 Completed [facility] TDAP (ADACEL) VACCINE 2018-10-10 00:00:00 Completed [facility] TDAP (ADACEL) VACCINE 2018-10-10 00:00:00 Completed [facility] TDAP (ADACEL) VACCINE 2018-10-10 00:00:00 Completed [facility] TDAP (ADACEL) VACCINE 2018-10-10 00:00:00 Completed [facility] TDAP (ADACEL) VACCINE 2018-10-10 00:00:00 Completed [facility] TDAP (ADACEL) VACCINE 2018-10-10 00:00:00 Completed [facility] TDAP (ADACEL) VACCINE 2018-10-10 00:00:00 Completed [facility] TDAP (ADACEL) VACCINE 2018-10-10 00:00:00 Completed [facility] TDAP (ADACEL) VACCINE 2018-10-10 00:00:00 Completed [facility] TDAP (ADACEL) VACCINE 2018-10-10 00:00:00 Completed [facility] TDAP (ADACEL) VACCINE 2018-10-10 00:00:00 Completed [facility] TDAP (ADACEL) VACCINE 2018-10-10 00:00:00 Completed [facility] TDAP (ADACEL) VACCINE 2018-10-10 00:00:00 Completed [facility] TDAP (ADACEL) VACCINE 2018-10-10 00:00:00 Completed [facility] TDAP (ADACEL) VACCINE 2018-10-10 00:00:00 Completed [facility] TDAP (ADACEL) VACCINE 2018-10-10 00:00:00 Completed [facility] TDAP (ADACEL) VACCINE 2018-10-10 00:00:00 Completed [facility] TDAP (ADACEL) VACCINE 2018-10-10 00:00:00 Completed [facility] TDAP (ADACEL) VACCINE 2018-10-10 00:00:00 Completed [facility] TDAP (ADACEL) VACCINE 2018-10-10 00:00:00 Completed [facility] TDAP (ADACEL) VACCINE 2018-10-10 00:00:00 Completed [facility] TDAP (ADACEL) VACCINE 2018-10-10 00:00:00 Completed [facility] TDAP (ADACEL) VACCINE 2018-10-10 00:00:00 Completed [facility] TDAP (ADACEL) VACCINE 2018-10-10 00:00:00 Completed [facility] TDAP (ADACEL) VACCINE 2018-10-10 00:00:00 Completed [facility] TDAP (ADACEL) VACCINE 2018-10-10 00:00:00 Completed [facility] TDAP (ADACEL) VACCINE 2018-10-10 00:00:00 Completed [facility] TDAP (ADACEL) VACCINE 2018-10-10 00:00:00 Completed [facility] TDAP (ADACEL) VACCINE 2018-10-10 00:00:00 Completed [facility] TDAP (ADACEL) VACCINE 2018-10-10 00:00:00 Completed [facility] TDAP (ADACEL) VACCINE 2018-10-10 00:00:00 Completed [facility] TDAP (ADACEL) VACCINE 2018-10-10 00:00:00 Completed [facility] TDAP (ADACEL) VACCINE 2018-10-10 00:00:00 Completed [facility] TDAP (ADACEL) VACCINE 2018-10-10 00:00:00 Completed [facility] TDAP (ADACEL) VACCINE 2018-10-10 00:00:00 Completed [facility] TDAP (ADACEL) VACCINE 2018-10-10 00:00:00 Completed [facility] TDAP (ADACEL) VACCINE 2018-10-10 00:00:00 Completed [facility] TDAP (ADACEL) VACCINE 2018-10-10 00:00:00 Completed [facility] TDAP (ADACEL) VACCINE 2018-10-10 00:00:00 Completed [facility] TDAP (ADACEL) VACCINE 2018-10-10 00:00:00 Completed [facility] TDAP (ADACEL) VACCINE 2018-10-10 00:00:00 Completed [facility] TDAP (ADACEL) VACCINE 2018-10-10 00:00:00 Completed [facility] TDAP (ADACEL) VACCINE 2018-10-10 00:00:00 Completed [facility] TDAP (ADACEL) VACCINE 2018-10-10 00:00:00 Completed [facility] TDAP (ADACEL) VACCINE 2018-10-10 00:00:00 Completed [facility] TDAP (ADACEL) VACCINE 2018-10-10 00:00:00 Completed [facility] TDAP (ADACEL) VACCINE 2018-10-10 00:00:00 Completed [facility] TDAP (ADACEL) VACCINE 2018-10-10 00:00:00 Completed [facility] TDAP (ADACEL) VACCINE 2018-10-10 00:00:00 Completed [facility] TDAP (ADACEL) VACCINE 2018-10-10 00:00:00 Completed [facility] TDAP (ADACEL) VACCINE 2018-10-10 00:00:00 Completed [facility] TDAP (ADACEL) VACCINE 2018-10-10 00:00:00 Completed [facility] TDAP (ADACEL) VACCINE 2018-10-10 00:00:00 Completed [facility] TDAP (ADACEL) VACCINE 2018-10-10 00:00:00 Completed [facility] TDAP (ADACEL) VACCINE 2018-10-10 00:00:00 Completed [facility] TDAP (ADACEL) VACCINE 2018-10-10 00:00:00 Completed [facility] TDAP (ADACEL) VACCINE 2018-10-10 00:00:00 Completed [facility] Flu Trivalent 2016-06-29 00:00:00 Completed [facility] Flu Trivalent 2016-06-29 00:00:00 Completed [facility] Flu Trivalent 2016-06-29 00:00:00 Completed [facility] Flu Trivalent 2016-06-29 00:00:00 Completed [facility] Flu Trivalent 2016-06-29 00:00:00 Completed [facility] Flu Trivalent 2016-06-29 00:00:00 Completed [facility] Flu Trivalent 2016-06-29 00:00:00 Completed [facility] Flu Trivalent 2016-06-29 00:00:00 Completed [facility] Flu Trivalent 2016-06-29 00:00:00 Completed [facility] Flu Trivalent 2016-06-29 00:00:00 Completed [facility] Flu Trivalent 2016-06-29 00:00:00 Completed [facility] Flu Trivalent 2016-06-29 00:00:00 Completed [facility] Flu Trivalent 2016-06-29 00:00:00 Completed [facility] Flu Trivalent 2016-06-29 00:00:00 Completed [facility] Flu Trivalent 2016-06-29 00:00:00 Completed [facility] Flu Trivalent 2016-06-29 00:00:00 Completed [facility] Flu Trivalent 2016-06-29 00:00:00 Completed [facility] Flu Trivalent 2016-06-29 00:00:00 Completed [facility] Flu Trivalent 2016-06-29 00:00:00 Completed [facility] Flu Trivalent 2016-06-29 00:00:00 Completed [facility] Flu Trivalent 2016-06-29 00:00:00 Completed [facility] Flu Trivalent 2016-06-29 00:00:00 Completed [facility] Flu Trivalent 2016-06-29 00:00:00 Completed [facility] Meningococcal Polysaccharide (groups A, C, Y and W-135) conjugate vaccine (MCV4P) 2012-10-11 00:00:00 Completed [facility] TDAP 2012-10-11 00:00:00 Completed [facility] Varicella (varivax)(chicken pox) 2012-10-11 00:00:00 Completed [facility] Meningococcal Polysaccharide (groups A, C, Y and W-135) conjugate vaccine (MCV4P) 2012-10-11 00:00:00 Completed [facility] TDAP 2012-10-11 00:00:00 Completed [facility] Varicella (varivax)(chicken pox) 2012-10-11 00:00:00 Completed [facility] Meningococcal Polysaccharide (groups A, C, Y and W-135) conjugate vaccine (MCV4P) 2012-10-11 00:00:00 Completed [facility] TDAP 2012-10-11 00:00:00 Completed [facility] Varicella (varivax)(chicken pox) 2012-10-11 00:00:00 Completed [facility] Meningococcal Polysaccharide (groups A, C, Y and W-135) conjugate vaccine (MCV4P) 2012-10-11 00:00:00 Completed [facility] TDAP 2012-10-11 00:00:00 Completed [facility] Varicella (varivax)(chicken pox) 2012-10-11 00:00:00 Completed [facility] Meningococcal Polysaccharide (groups A, C, Y and W-135) conjugate vaccine (MCV4P) 2012-10-11 00:00:00 Completed [facility] TDAP 2012-10-11 00:00:00 Completed [facility] Varicella (varivax)(chicken pox) 2012-10-11 00:00:00 Completed [facility] Meningococcal Polysaccharide (groups A, C, Y and W-135) conjugate vaccine (MCV4P) 2012-10-11 00:00:00 Completed [facility] TDAP 2012-10-11 00:00:00 Completed [facility] Varicella (varivax)(chicken pox) 2012-10-11 00:00:00 Completed [facility] Meningococcal Polysaccharide (groups A, C, Y and W-135) conjugate vaccine (MCV4P) 2012-10-11 00:00:00 Completed [facility] TDAP 2012-10-11 00:00:00 Completed [facility] Varicella (varivax)(chicken pox) 2012-10-11 00:00:00 Completed [facility] Meningococcal Polysaccharide (groups A, C, Y and W-135) conjugate vaccine (MCV4P) 2012-10-11 00:00:00 Completed [facility] TDAP 2012-10-11 00:00:00 Completed [facility] Varicella (varivax)(chicken pox) 2012-10-11 00:00:00 Completed [facility] Meningococcal Polysaccharide (groups A, C, Y and W-135) conjugate vaccine (MCV4P) 2012-10-11 00:00:00 Completed [facility] TDAP 2012-10-11 00:00:00 Completed [facility] Varicella (varivax)(chicken pox) 2012-10-11 00:00:00 Completed [facility] Meningococcal Polysaccharide (groups A, C, Y and W-135) conjugate vaccine (MCV4P) 2012-10-11 00:00:00 Completed [facility] TDAP 2012-10-11 00:00:00 Completed [facility] Varicella (varivax)(chicken pox) 2012-10-11 00:00:00 Completed [facility] Meningococcal Polysaccharide (groups A, C, Y and W-135) conjugate vaccine (MCV4P) 2012-10-11 00:00:00 Completed [facility] TDAP 2012-10-11 00:00:00 Completed [facility] Varicella (varivax)(chicken pox) 2012-10-11 00:00:00 Completed [facility] Meningococcal Polysaccharide (groups A, C, Y and W-135) conjugate vaccine (MCV4P) 2012-10-11 00:00:00 Completed [facility] TDAP 2012-10-11 00:00:00 Completed [facility] Varicella (varivax)(chicken pox) 2012-10-11 00:00:00 Completed [facility] Meningococcal Polysaccharide (groups A, C, Y and W-135) conjugate vaccine (MCV4P) 2012-10-11 00:00:00 Completed [facility] TDAP 2012-10-11 00:00:00 Completed [facility] Varicella (varivax)(chicken pox) 2012-10-11 00:00:00 Completed [facility] Meningococcal Polysaccharide (groups A, C, Y and W-135) conjugate vaccine (MCV4P) 2012-10-11 00:00:00 Completed [facility] TDAP 2012-10-11 00:00:00 Completed [facility] Varicella (varivax)(chicken pox) 2012-10-11 00:00:00 Completed [facility] Meningococcal Polysaccharide (groups A, C, Y and W-135) conjugate vaccine (MCV4P) 2012-10-11 00:00:00 Completed [facility] TDAP 2012-10-11 00:00:00 Completed [facility] Varicella (varivax)(chicken pox) 2012-10-11 00:00:00 Completed [facility] Meningococcal Polysaccharide (groups A, C, Y and W-135) conjugate vaccine (MCV4P) 2012-10-11 00:00:00 Completed [facility] TDAP 2012-10-11 00:00:00 Completed [facility] Varicella (varivax)(chicken pox) 2012-10-11 00:00:00 Completed [facility] Meningococcal Polysaccharide (groups A, C, Y and W-135) conjugate vaccine (MCV4P) 2012-10-11 00:00:00 Completed [facility] TDAP 2012-10-11 00:00:00 Completed [facility] Varicella (varivax)(chicken pox) 2012-10-11 00:00:00 Completed [facility] Meningococcal Polysaccharide (groups A, C, Y and W-135) conjugate vaccine (MCV4P) 2012-10-11 00:00:00 Completed [facility] TDAP 2012-10-11 00:00:00 Completed [facility] Varicella (varivax)(chicken pox) 2012-10-11 00:00:00 Completed [facility] Meningococcal Polysaccharide (groups A, C, Y and W-135) conjugate vaccine (MCV4P) 2012-10-11 00:00:00 Completed [facility] TDAP 2012-10-11 00:00:00 Completed [facility] Varicella (varivax)(chicken pox) 2012-10-11 00:00:00 Completed [facility] Meningococcal Polysaccharide (groups A, C, Y and W-135) conjugate vaccine (MCV4P) 2012-10-11 00:00:00 Completed [facility] TDAP 2012-10-11 00:00:00 Completed [facility] Varicella (varivax)(chicken pox) 2012-10-11 00:00:00 Completed [facility] Meningococcal Polysaccharide (groups A, C, Y and W-135) conjugate vaccine (MCV4P) 2012-10-11 00:00:00 Completed [facility] TDAP 2012-10-11 00:00:00 Completed [facility] Varicella (varivax)(chicken pox) 2012-10-11 00:00:00 Completed [facility] Meningococcal Polysaccharide (groups A, C, Y and W-135) conjugate vaccine (MCV4P) 2012-10-11 00:00:00 Completed [facility] TDAP 2012-10-11 00:00:00 Completed [facility] Varicella (varivax)(chicken pox) 2012-10-11 00:00:00 Completed [facility] Meningococcal Polysaccharide (groups A, C, Y and W-135) conjugate vaccine (MCV4P) 2012-10-11 00:00:00 Completed [facility] TDAP 2012-10-11 00:00:00 Completed [facility] Varicella (varivax)(chicken pox) 2012-10-11 00:00:00 Completed [facility] Influenza Virus Vaccine - Whole 2012-06-06 00:00:00 Completed [facility] Influenza Virus Vaccine - Whole 2012-06-06 00:00:00 Completed [facility] Influenza Virus Vaccine - Whole 2012-06-06 00:00:00 Completed [facility] Influenza Virus Vaccine - Whole 2012-06-06 00:00:00 Completed [facility] Influenza Virus Vaccine - Whole 2012-06-06 00:00:00 Completed [facility] Influenza Virus Vaccine - Whole 2012-06-06 00:00:00 Completed [facility] Influenza Virus Vaccine - Whole 2012-06-06 00:00:00 Completed [facility] Influenza Virus Vaccine - Whole 2012-06-06 00:00:00 Completed [facility] Influenza Virus Vaccine - Whole 2012-06-06 00:00:00 Completed [facility] Influenza Virus Vaccine - Whole 2012-06-06 00:00:00 Completed [facility] Influenza Virus Vaccine - Whole 2012-06-06 00:00:00 Completed [facility] Influenza Virus Vaccine - Whole 2012-06-06 00:00:00 Completed [facility] Influenza Virus Vaccine - Whole 2012-06-06 00:00:00 Completed [facility] Influenza Virus Vaccine - Whole 2012-06-06 00:00:00 Completed [facility] Influenza Virus Vaccine - Whole 2012-06-06 00:00:00 Completed [facility] Influenza Virus Vaccine - Whole 2012-06-06 00:00:00 Completed [facility] Influenza Virus Vaccine - Whole 2012-06-06 00:00:00 Completed [facility] Influenza Virus Vaccine - Whole 2012-06-06 00:00:00 Completed [facility] Influenza Virus Vaccine - Whole 2012-06-06 00:00:00 Completed [facility] Influenza Virus Vaccine - Whole 2012-06-06 00:00:00 Completed [facility] Influenza Virus Vaccine - Whole 2012-06-06 00:00:00 Completed [facility] Influenza Virus Vaccine - Whole 2012-06-06 00:00:00 Completed [facility] Influenza Virus Vaccine - Whole 2012-06-06 00:00:00 Completed [facility] HEPATITIS A 2005-12-21 00:00:00 Completed [facility] HEPATITIS A 2005-12-21 00:00:00 Completed [facility] HEPATITIS A 2005-12-21 00:00:00 Completed [facility] HEPATITIS A 2005-12-21 00:00:00 Completed [facility] HEPATITIS A 2005-12-21 00:00:00 Completed [facility] HEPATITIS A 2005-12-21 00:00:00 Completed [facility] HEPATITIS A 2005-12-21 00:00:00 Completed [facility] HEPATITIS A 2005-12-21 00:00:00 Completed [facility] HEPATITIS A 2005-12-21 00:00:00 Completed [facility] HEPATITIS A 2005-12-21 00:00:00 Completed [facility] HEPATITIS A 2005-12-21 00:00:00 Completed [facility] HEPATITIS A 2005-12-21 00:00:00 Completed [facility] HEPATITIS A 2005-12-21 00:00:00 Completed [facility] HEPATITIS A 2005-12-21 00:00:00 Completed [facility] HEPATITIS A 2005-12-21 00:00:00 Completed [facility] HEPATITIS A 2005-12-21 00:00:00 Completed [facility] HEPATITIS A 2005-12-21 00:00:00 Completed [facility] HEPATITIS A 2005-12-21 00:00:00 Completed [facility] HEPATITIS A 2005-12-21 00:00:00 Completed [facility] HEPATITIS A 2005-12-21 00:00:00 Completed [facility] HEPATITIS A 2005-12-21 00:00:00 Completed [facility] HEPATITIS A 2005-12-21 00:00:00 Completed [facility] HEPATITIS A 2005-12-21 00:00:00 Completed [facility] DTaP, Unspecified Formulation 2005-02-21 00:00:00 Completed [facility] HEPATITIS A 2005-02-21 00:00:00 Completed [facility] MMR 2005-02-21 00:00:00 Completed [facility] IPV 2005-02-21 00:00:00 Completed [facility] DTaP, Unspecified Formulation 2005-02-21 00:00:00 Completed [facility] HEPATITIS A 2005-02-21 00:00:00 Completed [facility] MMR 2005-02-21 00:00:00 Completed [facility] IPV 2005-02-21 00:00:00 Completed [facility] DTaP, Unspecified Formulation 2005-02-21 00:00:00 Completed [facility] HEPATITIS A 2005-02-21 00:00:00 Completed [facility] MMR 2005-02-21 00:00:00 Completed [facility] IPV 2005-02-21 00:00:00 Completed [facility] DTaP, Unspecified Formulation 2005-02-21 00:00:00 Completed [facility] HEPATITIS A 2005-02-21 00:00:00 Completed [facility] MMR 2005-02-21 00:00:00 Completed [facility] IPV 2005-02-21 00:00:00 Completed [facility] DTaP, Unspecified Formulation 2005-02-21 00:00:00 Completed [facility] HEPATITIS A 2005-02-21 00:00:00 Completed [facility] MMR 2005-02-21 00:00:00 Completed [facility] IPV 2005-02-21 00:00:00 Completed [facility] DTaP, Unspecified Formulation 2005-02-21 00:00:00 Completed [facility] HEPATITIS A 2005-02-21 00:00:00 Completed [facility] MMR 2005-02-21 00:00:00 Completed [facility] IPV 2005-02-21 00:00:00 Completed [facility] DTaP, Unspecified Formulation 2005-02-21 00:00:00 Completed [facility] HEPATITIS A 2005-02-21 00:00:00 Completed [facility] MMR 2005-02-21 00:00:00 Completed [facility] IPV 2005-02-21 00:00:00 Completed [facility] DTaP, Unspecified Formulation 2005-02-21 00:00:00 Completed [facility] HEPATITIS A 2005-02-21 00:00:00 Completed [facility] MMR 2005-02-21 00:00:00 Completed [facility] IPV 2005-02-21 00:00:00 Completed [facility] DTaP, Unspecified Formulation 2005-02-21 00:00:00 Completed [facility] HEPATITIS A 2005-02-21 00:00:00 Completed [facility] MMR 2005-02-21 00:00:00 Completed [facility] IPV 2005-02-21 00:00:00 Completed [facility] DTaP, Unspecified Formulation 2005-02-21 00:00:00 Completed [facility] HEPATITIS A 2005-02-21 00:00:00 Completed [facility] MMR 2005-02-21 00:00:00 Completed [facility] IPV 2005-02-21 00:00:00 Completed [facility] DTaP, Unspecified Formulation 2005-02-21 00:00:00 Completed [facility] HEPATITIS A 2005-02-21 00:00:00 Completed [facility] MMR 2005-02-21 00:00:00 Completed [facility] IPV 2005-02-21 00:00:00 Completed [facility] DTaP, Unspecified Formulation 2005-02-21 00:00:00 Completed [facility] HEPATITIS A 2005-02-21 00:00:00 Completed [facility] MMR 2005-02-21 00:00:00 Completed [facility] IPV 2005-02-21 00:00:00 Completed [facility] DTaP, Unspecified Formulation 2005-02-21 00:00:00 Completed [facility] HEPATITIS A 2005-02-21 00:00:00 Completed [facility] MMR 2005-02-21 00:00:00 Completed [facility] IPV 2005-02-21 00:00:00 Completed [facility] DTaP, Unspecified Formulation 2005-02-21 00:00:00 Completed [facility] HEPATITIS A 2005-02-21 00:00:00 Completed [facility] MMR 2005-02-21 00:00:00 Completed [facility] IPV 2005-02-21 00:00:00 Completed [facility] DTaP, Unspecified Formulation 2005-02-21 00:00:00 Completed [facility] HEPATITIS A 2005-02-21 00:00:00 Completed [facility] MMR 2005-02-21 00:00:00 Completed [facility] IPV 2005-02-21 00:00:00 Completed [facility] DTaP, Unspecified Formulation 2005-02-21 00:00:00 Completed [facility] HEPATITIS A 2005-02-21 00:00:00 Completed [facility] MMR 2005-02-21 00:00:00 Completed [facility] IPV 2005-02-21 00:00:00 Completed [facility] DTaP, Unspecified Formulation 2005-02-21 00:00:00 Completed [facility] HEPATITIS A 2005-02-21 00:00:00 Completed [facility] MMR 2005-02-21 00:00:00 Completed [facility] IPV 2005-02-21 00:00:00 Completed [facility] DTaP, Unspecified Formulation 2005-02-21 00:00:00 Completed [facility] HEPATITIS A 2005-02-21 00:00:00 Completed [facility] MMR 2005-02-21 00:00:00 Completed [facility] IPV 2005-02-21 00:00:00 Completed [facility] DTaP, Unspecified Formulation 2005-02-21 00:00:00 Completed [facility] HEPATITIS A 2005-02-21 00:00:00 Completed [facility] MMR 2005-02-21 00:00:00 Completed [facility] IPV 2005-02-21 00:00:00 Completed [facility] DTaP, Unspecified Formulation 2005-02-21 00:00:00 Completed [facility] HEPATITIS A 2005-02-21 00:00:00 Completed [facility] MMR 2005-02-21 00:00:00 Completed [facility] IPV 2005-02-21 00:00:00 Completed [facility] DTaP, Unspecified Formulation 2005-02-21 00:00:00 Completed [facility] HEPATITIS A 2005-02-21 00:00:00 Completed [facility] MMR 2005-02-21 00:00:00 Completed [facility] IPV 2005-02-21 00:00:00 Completed [facility] DTaP, Unspecified Formulation 2005-02-21 00:00:00 Completed [facility] HEPATITIS A 2005-02-21 00:00:00 Completed [facility] MMR 2005-02-21 00:00:00 Completed [facility] IPV 2005-02-21 00:00:00 Completed [facility] DTaP, Unspecified Formulation 2005-02-21 00:00:00 Completed [facility] HEPATITIS A 2005-02-21 00:00:00 Completed [facility] MMR 2005-02-21 00:00:00 Completed [facility] IPV 2005-02-21 00:00:00 Completed [facility] DTaP, Unspecified Formulation 2004-02-05 00:00:00 Completed [facility] HIB 4 Dose Schedule 2004-02-05 00:00:00 Completed [facility] DTaP, Unspecified Formulation 2004-02-05 00:00:00 Completed [facility] HIB 4 Dose Schedule 2004-02-05 00:00:00 Completed [facility] DTaP, Unspecified Formulation 2004-02-05 00:00:00 Completed [facility] HIB 4 Dose Schedule 2004-02-05 00:00:00 Completed [facility] DTaP, Unspecified Formulation 2004-02-05 00:00:00 Completed [facility] HIB 4 Dose Schedule 2004-02-05 00:00:00 Completed [facility] DTaP, Unspecified Formulation 2004-02-05 00:00:00 Completed [facility] HIB 4 Dose Schedule 2004-02-05 00:00:00 Completed [facility] DTaP, Unspecified Formulation 2004-02-05 00:00:00 Completed [facility] HIB 4 Dose Schedule 2004-02-05 00:00:00 Completed [facility] DTaP, Unspecified Formulation 2004-02-05 00:00:00 Completed [facility] HIB 4 Dose Schedule 2004-02-05 00:00:00 Completed [facility] DTaP, Unspecified Formulation 2004-02-05 00:00:00 Completed [facility] HIB 4 Dose Schedule 2004-02-05 00:00:00 Completed [facility] DTaP, Unspecified Formulation 2004-02-05 00:00:00 Completed [facility] HIB 4 Dose Schedule 2004-02-05 00:00:00 Completed [facility] DTaP, Unspecified Formulation 2004-02-05 00:00:00 Completed [facility] HIB 4 Dose Schedule 2004-02-05 00:00:00 Completed [facility] DTaP, Unspecified Formulation 2004-02-05 00:00:00 Completed [facility] HIB 4 Dose Schedule 2004-02-05 00:00:00 Completed [facility] DTaP, Unspecified Formulation 2004-02-05 00:00:00 Completed [facility] HIB 4 Dose Schedule 2004-02-05 00:00:00 Completed [facility] DTaP, Unspecified Formulation 2004-02-05 00:00:00 Completed [facility] HIB 4 Dose Schedule 2004-02-05 00:00:00 Completed [facility] DTaP, Unspecified Formulation 2004-02-05 00:00:00 Completed [facility] HIB 4 Dose Schedule 2004-02-05 00:00:00 Completed [facility] DTaP, Unspecified Formulation 2004-02-05 00:00:00 Completed [facility] HIB 4 Dose Schedule 2004-02-05 00:00:00 Completed [facility] DTaP, Unspecified Formulation 2004-02-05 00:00:00 Completed [facility] HIB 4 Dose Schedule 2004-02-05 00:00:00 Completed [facility] DTaP, Unspecified Formulation 2004-02-05 00:00:00 Completed [facility] HIB 4 Dose Schedule 2004-02-05 00:00:00 Completed [facility] DTaP, Unspecified Formulation 2004-02-05 00:00:00 Completed [facility] HIB 4 Dose Schedule 2004-02-05 00:00:00 Completed [facility] DTaP, Unspecified Formulation 2004-02-05 00:00:00 Completed [facility] HIB 4 Dose Schedule 2004-02-05 00:00:00 Completed [facility] DTaP, Unspecified Formulation 2004-02-05 00:00:00 Completed [facility] HIB 4 Dose Schedule 2004-02-05 00:00:00 Completed [facility] DTaP, Unspecified Formulation 2004-02-05 00:00:00 Completed [facility] HIB 4 Dose Schedule 2004-02-05 00:00:00 Completed [facility] DTaP, Unspecified Formulation 2004-02-05 00:00:00 Completed [facility] HIB 4 Dose Schedule 2004-02-05 00:00:00 Completed [facility] DTaP, Unspecified Formulation 2004-02-05 00:00:00 Completed [facility] HIB 4 Dose Schedule 2004-02-05 00:00:00 Completed [facility] DTaP, Unspecified Formulation 2000 00:00:00 Completed [facility] HIB 4 Dose Schedule 2000 00:00:00 Completed [facility] Pneumococcal 7 Conjugate, PCV7 (Prevnar7) 2000 00:00:00 Completed [facility] IPV 2000 00:00:00 Completed [facility] DTaP, Unspecified Formulation 2000 00:00:00 Completed [facility] HIB 4 Dose Schedule 2000 00:00:00 Completed [facility] Pneumococcal 7 Conjugate, PCV7 (Prevnar7) 2000 00:00:00 Completed [facility] IPV 2000 00:00:00 Completed [facility] DTaP, Unspecified Formulation 2000 00:00:00 Completed [facility] HIB 4 Dose Schedule 2000 00:00:00 Completed [facility] Pneumococcal 7 Conjugate, PCV7 (Prevnar7) 2000 00:00:00 Completed [facility] IPV 2000 00:00:00 Completed [facility] DTaP, Unspecified Formulation 2000 00:00:00 Completed [facility] HIB 4 Dose Schedule 2000 00:00:00 Completed [facility] Pneumococcal 7 Conjugate, PCV7 (Prevnar7) 2000 00:00:00 Completed [facility] IPV 2000 00:00:00 Completed [facility] DTaP, Unspecified Formulation 2000 00:00:00 Completed [facility] HIB 4 Dose Schedule 2000 00:00:00 Completed [facility] Pneumococcal 7 Conjugate, PCV7 (Prevnar7) 2000 00:00:00 Completed [facility] IPV 2000 00:00:00 Completed [facility] DTaP, Unspecified Formulation 2000 00:00:00 Completed [facility] HIB 4 Dose Schedule 2000 00:00:00 Completed [facility] Pneumococcal 7 Conjugate, PCV7 (Prevnar7) 2000 00:00:00 Completed [facility] IPV 2000 00:00:00 Completed [facility] DTaP, Unspecified Formulation 2000 00:00:00 Completed [facility] HIB 4 Dose Schedule 2000 00:00:00 Completed [facility] Pneumococcal 7 Conjugate, PCV7 (Prevnar7) 2000 00:00:00 Completed [facility] IPV 2000 00:00:00 Completed [facility] DTaP, Unspecified Formulation 2000 00:00:00 Completed [facility] HIB 4 Dose Schedule 2000 00:00:00 Completed [facility] Pneumococcal 7 Conjugate, PCV7 (Prevnar7) 2000 00:00:00 Completed [facility] IPV 2000 00:00:00 Completed [facility] DTaP, Unspecified Formulation 2000 00:00:00 Completed [facility] HIB 4 Dose Schedule 2000 00:00:00 Completed [facility] Pneumococcal 7 Conjugate, PCV7 (Prevnar7) 2000 00:00:00 Completed [facility] IPV 2000 00:00:00 Completed [facility] DTaP, Unspecified Formulation 2000 00:00:00 Completed [facility] HIB 4 Dose Schedule 2000 00:00:00 Completed [facility] Pneumococcal 7 Conjugate, PCV7 (Prevnar7) 2000 00:00:00 Completed [facility] IPV 2000 00:00:00 Completed [facility] DTaP, Unspecified Formulation 2000 00:00:00 Completed [facility] HIB 4 Dose Schedule 2000 00:00:00 Completed [facility] Pneumococcal 7 Conjugate, PCV7 (Prevnar7) 2000 00:00:00 Completed [facility] IPV 2000 00:00:00 Completed [facility] DTaP, Unspecified Formulation 2000 00:00:00 Completed [facility] HIB 4 Dose Schedule 2000 00:00:00 Completed [facility] Pneumococcal 7 Conjugate, PCV7 (Prevnar7) 2000 00:00:00 Completed [facility] IPV 2000 00:00:00 Completed [facility] DTaP, Unspecified Formulation 2000 00:00:00 Completed [facility] HIB 4 Dose Schedule 2000 00:00:00 Completed [facility] Pneumococcal 7 Conjugate, PCV7 (Prevnar7) 2000 00:00:00 Completed [facility] IPV 2000 00:00:00 Completed [facility] DTaP, Unspecified Formulation 2000 00:00:00 Completed [facility] HIB 4 Dose Schedule 2000 00:00:00 Completed [facility] Pneumococcal 7 Conjugate, PCV7 (Prevnar7) 2000 00:00:00 Completed [facility] IPV 2000 00:00:00 Completed [facility] DTaP, Unspecified Formulation 2000 00:00:00 Completed [facility] HIB 4 Dose Schedule 2000 00:00:00 Completed [facility] Pneumococcal 7 Conjugate, PCV7 (Prevnar7) 2000 00:00:00 Completed [facility] IPV 2000 00:00:00 Completed [facility] DTaP, Unspecified Formulation 2000 00:00:00 Completed [facility] HIB 4 Dose Schedule 2000 00:00:00 Completed [facility] Pneumococcal 7 Conjugate, PCV7 (Prevnar7) 2000 00:00:00 Completed [facility] IPV 2000 00:00:00 Completed [facility] DTaP, Unspecified Formulation 2000 00:00:00 Completed [facility] HIB 4 Dose Schedule 2000 00:00:00 Completed [facility] Pneumococcal 7 Conjugate, PCV7 (Prevnar7) 2000 00:00:00 Completed [facility] IPV 2000 00:00:00 Completed [facility] DTaP, Unspecified Formulation 2000 00:00:00 Completed [facility] HIB 4 Dose Schedule 2000 00:00:00 Completed [facility] Pneumococcal 7 Conjugate, PCV7 (Prevnar7) 2000 00:00:00 Completed [facility] IPV 2000 00:00:00 Completed [facility] DTaP, Unspecified Formulation 2000 00:00:00 Completed [facility] HIB 4 Dose Schedule 2000 00:00:00 Completed [facility] Pneumococcal 7 Conjugate, PCV7 (Prevnar7) 2000 00:00:00 Completed [facility] IPV 2000 00:00:00 Completed [facility] DTaP, Unspecified Formulation 2000 00:00:00 Completed [facility] HIB 4 Dose Schedule 2000 00:00:00 Completed [facility] Pneumococcal 7 Conjugate, PCV7 (Prevnar7) 2000 00:00:00 Completed [facility] IPV 2000 00:00:00 Completed [facility] DTaP, Unspecified Formulation 2000 00:00:00 Completed [facility] HIB 4 Dose Schedule 2000 00:00:00 Completed [facility] Pneumococcal 7 Conjugate, PCV7 (Prevnar7) 2000 00:00:00 Completed [facility] IPV 2000 00:00:00 Completed [facility] DTaP, Unspecified Formulation 2000 00:00:00 Completed [facility] HIB 4 Dose Schedule 2000 00:00:00 Completed [facility] Pneumococcal 7 Conjugate, PCV7 (Prevnar7) 2000 00:00:00 Completed [facility] IPV 2000 00:00:00 Completed [facility] DTaP, Unspecified Formulation 2000 00:00:00 Completed [facility] HIB 4 Dose Schedule 2000 00:00:00 Completed [facility] Pneumococcal 7 Conjugate, PCV7 (Prevnar7) 2000 00:00:00 Completed [facility] IPV 2000 00:00:00 Completed [facility] DTaP, Unspecified Formulation 2000 00:00:00 Completed [facility] HIB 4 Dose Schedule 2000 00:00:00 Completed [facility] Pneumococcal 7 Conjugate, PCV7 (Prevnar7) 2000 00:00:00 Completed [facility] IPV 2000 00:00:00 Completed [facility] DTaP, Unspecified Formulation 2000 00:00:00 Completed [facility] HIB 4 Dose Schedule 2000 00:00:00 Completed [facility] Pneumococcal 7 Conjugate, PCV7 (Prevnar7) 2000 00:00:00 Completed [facility] IPV 2000 00:00:00 Completed [facility] DTaP, Unspecified Formulation 2000 00:00:00 Completed [facility] HIB 4 Dose Schedule 2000 00:00:00 Completed [facility] Pneumococcal 7 Conjugate, PCV7 (Prevnar7) 2000 00:00:00 Completed [facility] IPV 2000 00:00:00 Completed [facility] DTaP, Unspecified Formulation 2000 00:00:00 Completed [facility] HIB 4 Dose Schedule 2000 00:00:00 Completed [facility] Pneumococcal 7 Conjugate, PCV7 (Prevnar7) 2000 00:00:00 Completed [facility] IPV 2000 00:00:00 Completed [facility] DTaP, Unspecified Formulation 2000 00:00:00 Completed [facility] HIB 4 Dose Schedule 2000 00:00:00 Completed [facility] Pneumococcal 7 Conjugate, PCV7 (Prevnar7) 2000 00:00:00 Completed [facility] IPV 2000 00:00:00 Completed [facility] DTaP, Unspecified Formulation 2000 00:00:00 Completed [facility] HIB 4 Dose Schedule 2000 00:00:00 Completed [facility] Pneumococcal 7 Conjugate, PCV7 (Prevnar7) 2000 00:00:00 Completed [facility] IPV 2000 00:00:00 Completed [facility] DTaP, Unspecified Formulation 2000 00:00:00 Completed [facility] HIB 4 Dose Schedule 2000 00:00:00 Completed [facility] Pneumococcal 7 Conjugate, PCV7 (Prevnar7) 2000 00:00:00 Completed [facility] IPV 2000 00:00:00 Completed [facility] DTaP, Unspecified Formulation 2000 00:00:00 Completed [facility] HIB 4 Dose Schedule 2000 00:00:00 Completed [facility] Pneumococcal 7 Conjugate, PCV7 (Prevnar7) 2000 00:00:00 Completed [facility] IPV 2000 00:00:00 Completed [facility] DTaP, Unspecified Formulation 2000 00:00:00 Completed [facility] HIB 4 Dose Schedule 2000 00:00:00 Completed [facility] Pneumococcal 7 Conjugate, PCV7 (Prevnar7) 2000 00:00:00 Completed [facility] IPV 2000 00:00:00 Completed [facility] DTaP, Unspecified Formulation 2000 00:00:00 Completed [facility] HIB 4 Dose Schedule 2000 00:00:00 Completed [facility] Pneumococcal 7 Conjugate, PCV7 (Prevnar7) 2000 00:00:00 Completed [facility] IPV 2000 00:00:00 Completed [facility] DTaP, Unspecified Formulation 2000 00:00:00 Completed [facility] HIB 4 Dose Schedule 2000 00:00:00 Completed [facility] Pneumococcal 7 Conjugate, PCV7 (Prevnar7) 2000 00:00:00 Completed [facility] IPV 2000 00:00:00 Completed [facility] DTaP, Unspecified Formulation 2000 00:00:00 Completed [facility] HIB 4 Dose Schedule 2000 00:00:00 Completed [facility] Pneumococcal 7 Conjugate, PCV7 (Prevnar7) 2000 00:00:00 Completed [facility] IPV 2000 00:00:00 Completed [facility] DTaP, Unspecified Formulation 2000 00:00:00 Completed [facility] HIB 4 Dose Schedule 2000 00:00:00 Completed [facility] Pneumococcal 7 Conjugate, PCV7 (Prevnar7) 2000 00:00:00 Completed [facility] IPV 2000 00:00:00 Completed [facility] DTaP, Unspecified Formulation 2000 00:00:00 Completed [facility] HIB 4 Dose Schedule 2000 00:00:00 Completed [facility] Pneumococcal 7 Conjugate, PCV7 (Prevnar7) 2000 00:00:00 Completed [facility] IPV 2000 00:00:00 Completed [facility] DTaP, Unspecified Formulation 2000 00:00:00 Completed [facility] HIB 4 Dose Schedule 2000 00:00:00 Completed [facility] Pneumococcal 7 Conjugate, PCV7 (Prevnar7) 2000 00:00:00 Completed [facility] IPV 2000 00:00:00 Completed [facility] DTaP, Unspecified Formulation 2000 00:00:00 Completed [facility] HIB 4 Dose Schedule 2000 00:00:00 Completed [facility] Pneumococcal 7 Conjugate, PCV7 (Prevnar7) 2000 00:00:00 Completed [facility] IPV 2000 00:00:00 Completed [facility] DTaP, Unspecified Formulation 2000 00:00:00 Completed [facility] HIB 4 Dose Schedule 2000 00:00:00 Completed [facility] Pneumococcal 7 Conjugate, PCV7 (Prevnar7) 2000 00:00:00 Completed [facility] IPV 2000 00:00:00 Completed [facility] DTaP, Unspecified Formulation 2000 00:00:00 Completed [facility] HIB 4 Dose Schedule 2000 00:00:00 Completed [facility] Pneumococcal 7 Conjugate, PCV7 (Prevnar7) 2000 00:00:00 Completed [facility] IPV 2000 00:00:00 Completed [facility] DTaP, Unspecified Formulation 2000 00:00:00 Completed [facility] HIB 4 Dose Schedule 2000 00:00:00 Completed [facility] Pneumococcal 7 Conjugate, PCV7 (Prevnar7) 2000 00:00:00 Completed [facility] IPV 2000 00:00:00 Completed [facility] DTaP, Unspecified Formulation 2000 00:00:00 Completed [facility] HIB 4 Dose Schedule 2000 00:00:00 Completed [facility] Pneumococcal 7 Conjugate, PCV7 (Prevnar7) 2000 00:00:00 Completed [facility] IPV 2000 00:00:00 Completed [facility] DTaP, Unspecified Formulation 2000 00:00:00 Completed [facility] HIB 4 Dose Schedule 2000 00:00:00 Completed [facility] Pneumococcal 7 Conjugate, PCV7 (Prevnar7) 2000 00:00:00 Completed [facility] IPV 2000 00:00:00 Completed [facility] DTaP, Unspecified Formulation 2000 00:00:00 Completed [facility] HIB 4 Dose Schedule 2000 00:00:00 Completed [facility] Pneumococcal 7 Conjugate, PCV7 (Prevnar7) 2000 00:00:00 Completed [facility] IPV 2000 00:00:00 Completed [facility] DTaP, Unspecified Formulation 2000 00:00:00 Completed [facility] HIB 4 Dose Schedule 2000 00:00:00 Completed [facility] Pneumococcal 7 Conjugate, PCV7 (Prevnar7) 2000 00:00:00 Completed [facility] IPV 2000 00:00:00 Completed [facility] Hep B, Adol or Pedi Dosage 2000 00:00:00 Completed [facility] Hep B, Adol or Pedi Dosage 2000 00:00:00 Completed [facility] Hep B, Adol or Pedi Dosage 2000 00:00:00 Completed [facility] Hep B, Adol or Pedi Dosage 2000 00:00:00 Completed [facility] Hep B, Adol or Pedi Dosage 2000 00:00:00 Completed [facility] Hep B, Adol or Pedi Dosage 2000 00:00:00 Completed [facility] Hep B, Adol or Pedi Dosage 2000 00:00:00 Completed [facility] Hep B, Adol or Pedi Dosage 2000 00:00:00 Completed [facility] Hep B, Adol or Pedi Dosage 2000 00:00:00 Completed [facility] Hep B, Adol or Pedi Dosage 2000 00:00:00 Completed [facility] Hep B, Adol or Pedi Dosage 2000 00:00:00 Completed [facility] Hep B, Adol or Pedi Dosage 2000 00:00:00 Completed [facility] Hep B, Adol or Pedi Dosage 2000 00:00:00 Completed [facility] Hep B, Adol or Pedi Dosage 2000 00:00:00 Completed [facility] Hep B, Adol or Pedi Dosage 2000 00:00:00 Completed [facility] Hep B, Adol or Pedi Dosage 2000 00:00:00 Completed [facility] Hep B, Adol or Pedi Dosage 2000 00:00:00 Completed [facility] Hep B, Adol or Pedi Dosage 2000 00:00:00 Completed [facility] Hep B, Adol or Pedi Dosage 2000 00:00:00 Completed [facility] Hep B, Adol or Pedi Dosage 2000 00:00:00 Completed [facility] Hep B, Adol or Pedi Dosage 2000 00:00:00 Completed [facility] Hep B, Adol or Pedi Dosage 2000 00:00:00 Completed [facility] Hep B, Adol or Pedi Dosage 2000 00:00:00 Completed [facility] Vital Signs Vital Name Observation Time Observation Value Comments S ource Systolic blood pressure 2023-12-26 04:03:01 115 mm[Hg] [place] [facility] Diastolic blood pressure 2023-12-26 04:03:01 84 mm[Hg] [place] [facility] Heart rate 2023-12-26 04:03:01 80 /min [facility] Body temperature 2023-12-26 04:03:01 36.5 Rene[facility] Respiratory rate 2023-12-26 04:03:01 17 /min [facility] Body height 2023-12-26 04:01:00 162.6 cm [facility] Body weight 2023-12-26 04:01:00 48.535 kg [facility] BMI 2023-12-26 04:01:00 18.37 kg/m2 [facility] Oxygen saturation in Arterial blood by Pulse oximetry 2023-12-26 04:01:00 99 /min [facility] Systolic blood pressure 2023-11-28 18:30:00 114 mm[Hg] [facility] Diastolic blood pressure 2023-11-28 18:30:00 94 mm[Hg] [facility] Heart rate 2023-11-28 18:30:00 57 /min [facility] Body temperature 2023-11-28 18:30:00 36.78 Renee [facility] Respiratory rate 2023-11-28 18:30:00 16 /min [facility] Oxygen saturation in Arterial blood by Pulse oximetry 2023-11-28 18:30:00 100 /min [facility] Body height 2023-11-28 15:04:00 162.6 cm [facility] Body weight 2023-11-28 15:04:00 52.617 kg [facility] BMI 2023-11-28 15:04:00 19.91 kg/m2 [facility] Systolic blood pressure 2023-11-27 22:12:00 125 mm[Hg] [facility] Diastolic blood pressure 2023-11-27 22:12:00 70 mm[Hg] [facility] Heart rate 2023-11-27 22:12:00 73 /min [facility] Body temperature 2023-11-27 22:12:00 37.11 Renee [facility] Respiratory rate 2023-11-27 22:12:00 16 /min [facility] Body height 2023-11-27 22:12:00 162.6 cm [facility] Body weight 2023-11-27 22:12:00 49.896 kg [facility] BMI 2023-11-27 22:12:00 18.88 kg/m2 [facility] Oxygen saturation in Arterial blood by Pulse oximetry 2023-11-27 22:12:00 100 /min [facility] Systolic blood pressure 2023-03-28 16:05:00 136 mm[Hg] [facility] Diastolic blood pressure 2023-03-28 16:05:00 70 mm[Hg] [facility] Heart rate 2023-03-28 16:05:00 60 /min [facility] Body temperature 2023-03-28 16:05:00 36.11 Renee [facility] Respiratory rate 2023-03-28 16:05:00 16 /min [facility] Body height 2023-03-28 16:05:00 162.6 cm [facility] Body weight 2023-03-28 16:05:00 59.166 kg [facility] BMI 2023-03-28 16:05:00 22.39 kg/m2 [facility] Systolic blood pressure 2023-03-08 02:47:00 107 mm[Hg] [facility] Diastolic blood pressure 2023-03-08 02:47:00 61 mm[Hg] [facility] Heart rate 2023-03-08 02:47:00 72 /min [facility] Body temperature 2023-03-08 02:47:00 36.17 R[facility] Respiratory rate 2023-03-08 02:47:00 18 /min [facility] Oxygen saturation in Arterial blood by Pulse oximetry 2023-03-08 02:47:00 98 /min [facility] Body height 2023-03-06 23:09:00 162.6 cm [facility] Body weight 2023-03-06 23:09:00 65.772 kg [facility] BMI 2023-03-06 23:09:00 24.88 kg/m2 [facility] Systolic blood pressure 2023-02-21 12:56:00 116 mm[Hg] [facility] Diastolic blood pressure 2023-02-21 12:56:00 76 mm[Hg] [facility] Heart rate 2023-02-21 12:56:00 83 /min [facility] Body temperature 2023-02-21 12:56:00 35.72 Renee [facility] Respiratory rate 2023-02-21 12:56:00 18 /min [facility] Body height 2023-02-21 12:56:00 162.6 cm [facility] Body weight 2023-02-21 12:56:00 65.862 kg [facility] BMI 2023-02-21 12:56:00 24.92 kg/m2 [facility] Systolic blood pressure 2023-02-07 20:16:00 111 mm[Hg] [facility] Diastolic blood pressure 2023-02-07 20:16:00 63 mm[Hg] [facility] Heart rate 2023-02-07 20:16:00 71 /min [facility] Body temperature 2023-02-07 20:16:00 36.56 Rene[facility] Respiratory rate 2023-02-07 20:16:00 18 /min [facility] Body height 2023-02-07 20:16:00 162.6 cm [facility] Body weight 2023-02-07 20:16:00 64.048 kg [facility] BMI 2023-02-07 20:16:00 24.24 kg/m2 [facility] Systolic blood pressure 2023-01-26 02:18:00 112 mm[Hg] [facility] Diastolic blood pressure 2023-01-26 02:18:00 65 mm[Hg] [facility] Heart rate 2023-01-26 02:18:00 82 /min [facility] Body temperature 2023-01-26 02:18:00 36.83 R[facility] Respiratory rate 2023-01-26 02:18:00 18 /min [facility] Body height 2023-01-26 02:18:00 162.6 cm [facility] Body weight 2023-01-26 02:18:00 64.592 kg [facility] BMI 2023-01-26 02:18:00 24.44 kg/m2 [facility] Oxygen saturation in Arterial blood by Pulse oximetry 2023-01-26 02:18:00 99 /min [facility] Systolic blood pressure 2023-01-16 21:00:00 101 mm[Hg] [facility] Diastolic blood pressure 2023-01-16 21:00:00 52 mm[Hg] [facility] Heart rate 2023-01-16 21:00:00 84 /min [facility] Body temperature 2023-01-16 21:00:00 36.56 R[facility] Respiratory rate 2023-01-16 21:00:00 20 /min [facility] Body weight 2023-01-16 21:00:00 63.957 kg [facility] BMI 2023-01-16 21:00:00 24.20 kg/m2 [facility] Systolic blood pressure 2022-12-27 21:01:00 103 mm[Hg] [facility] Diastolic blood pressure 2022-12-27 21:01:00 60 mm[Hg] [facility] Heart rate 2022-12-27 21:01:00 75 /min [facility] Body temperature 2022-12-27 21:01:00 36.5 Renee [facility] Respiratory rate 2022-12-27 21:01:00 20 /min [facility] Body height 2022-12-27 21:01:00 162.6 cm [facility] Body weight 2022-12-27 21:01:00 62.551 kg [facility] BMI 2022-12-27 21:01:00 23.67 kg/m2 [facility] Systolic blood pressure 2022-11-30 13:56:00 115 mm[Hg] [facility] Diastolic blood pressure 2022-11-30 13:56:00 70 mm[Hg] [facility] Heart rate 2022-11-30 13:56:00 71 /min [facility] Body temperature 2022-11-30 13:56:00 36.72 Renee [facility] Respiratory rate 2022-11-30 13:56:00 20 /min [facility] Body height 2022-11-30 13:56:00 162.6 cm [facility] Body weight 2022-11-30 13:56:00 59.739 kg [facility] BMI 2022-11-30 13:56:00 22.61 kg/m2 [facility] Systolic blood pressure 2022-10-24 12:53:00 105 mm[Hg] [facility] Diastolic blood pressure 2022-10-24 12:53:00 64 mm[Hg] [facility] Heart rate 2022-10-24 12:53:00 69 /min [facility] Body temperature 2022-10-24 12:53:00 36.67 Renee [facility] Respiratory rate 2022-10-24 12:53:00 16 /min [facility] Body height 2022-10-24 12:53:00 162.6 cm [facility] Body weight 2022-10-24 12:53:00 58.832 kg [facility] BMI 2022-10-24 12:53:00 22.26 kg/m2 [facility] Systolic blood pressure 2022-09-19 17:42:00 110 mm[Hg] [facility] Diastolic blood pressure 2022-09-19 17:42:00 63 mm[Hg] [facility] Heart rate 2022-09-19 17:42:00 78 /min [facility] Body temperature 2022-09-19 17:42:00 36.72 Renee [facility] Respiratory rate 2022-09-19 17:42:00 20 /min [facility] Body height 2022-09-19 17:42:00 162.6 cm [facility] Body weight 2022-09-19 17:42:00 57.108 kg [facility] BMI 2022-09-19 17:42:00 21.61 kg/m2 [facility] Systolic blood pressure 2022-08-22 13:29:00 108 mm[Hg] [facility] Diastolic blood pressure 2022-08-22 13:29:00 65 mm[Hg] [facility] Heart rate 2022-08-22 13:29:00 69 /[facility] 2022-08-22 13:29:00 36.67 Renee [facility] Respiratory rate 2022-08-22 13:29:00 18 /min [facility] Body height 2022-08-22 13:29:00 162.6 [facility] 2022-08-22 13:29:00 54.159 [facility] 2022-08-22 13:29:00 20.49 kg/m2 [facility] Systolic blood pressure 2022-08-04 13:39:00 105 mm[Hg] [facility] Diastolic blood pressure 2022-08-04 13:39:00 68 mm[Hg] [facility] Heart rate 2022-08-04 13:39:00 60 /min [facility] Body temperature 2022-08-04 13:39:00 36.56 Renee [facility] Respiratory rate 2022-08-04 13:39:00 18 /min [facility] Body height 2022-08-04 13:39:00 162.6 cm [facility] Body weight 2022-08-04 13:39:00 54.159 kg [facility] BMI 2022-08-04 13:39:00 20.49 kg/m2 [facility] Diastolic blood pressure 2022-01-28 15:07:00 69 mm[Hg] [facility] Heart rate 2022-01-28 15:07:00 74 /min [facility] Body temperature 2022-01-28 15:07:00 36.11 R[facility] Respiratory rate 2022-01-28 15:07:00 18 /min [facility] Body weight 2022-01-28 15:07:00 54.432 kg [facility] BMI 2022-01-28 15:07:00 20.60 kg/m2 [facility] Oxygen saturation in Arterial blood by Pulse oximetry 2022-01-28 15:07:00 99 /min [facility] Systolic blood pressure 2022-01-28 15:07:00 132 mm[Hg] [facility] Systolic blood pressure 2021-12-05 03:00:00 129 mm[Hg] [facility] Diastolic blood pressure 2021-12-05 03:00:00 76 mm[Hg] [facility] Heart rate 2021-12-05 03:00:00 74 /min [facility] Respiratory rate 2021-12-05 03:00:00 16 /min [facility] Oxygen saturation in Arterial blood by Pulse oximetry 2021-12-05 03:00:00 99 /min [facility] Body temperature 2021-12-05 00:35:00 37.28 R[facility] Body height 2021-12-05 00:35:00 162.6 cm [facility] Body weight 2021-12-05 00:35:00 45.36 kg [facility] BMI 2021-12-05 00:35:00 17.16 kg/m2 [facility] Systolic blood pressure 2021-09-05 18:09:00 132 mm[Hg] [facility] Diastolic blood pressure 2021-09-05 18:09:00 76 mm[Hg] [facility] Heart rate 2021-09-05 18:09:00 66 /min [facility] Body temperature 2021-09-05 18:09:00 36.56 Renee [facility] Respiratory rate 2021-09-05 18:09:00 16 /min [facility] Body height 2021-09-05 18:09:00 162.6 cm [facility] Body weight 2021-09-05 18:09:00 50.009 kg [facility] BMI 2021-09-05 18:09:00 18.92 kg/m2 [facility] Systolic blood pressure 2021-07-26 02:30:00 118 mm[Hg] [facility] Diastolic blood pressure 2021-07-26 02:30:00 75 mm[Hg] [facility] Heart rate 2021-07-26 02:30:00 58 /min [facility] Body temperature 2021-07-26 02:30:00 36.78 R[facility] Respiratory rate 2021-07-26 02:30:00 25 /min [facility] Oxygen saturation in Arterial blood by Pulse oximetry 2021-07-26 02:30:00 99 /min [facility] Body height 2021-07-25 23:19:44 162.6 cm [facility] Body weight 2021-07-25 23:19:44 49.896 kg [facility] BMI 2021-07-25 23:19:44 18.88 kg/m2 [facility] Systolic blood pressure 2021-07-02 21:49:00 125 mm[Hg] [facility] Diastolic blood pressure 2021-07-02 21:49:00 66 mm[Hg] [facility] Heart rate 2021-07-02 21:49:00 82 /min [facility] Body temperature 2021-07-02 21:49:00 37.28 Renee [facility] Respiratory rate 2021-07-02 21:49:00 18 /min [facility] Body height 2021-07-02 21:49:00 162.6 cm [facility] Body weight 2021-07-02 21:49:00 49.896 kg [facility] BMI 2021-07-02 21:49:00 18.88 kg/m2 [facility] Oxygen saturation in Arterial blood by Pulse oximetry 2021-07-02 21:49:00 99 /min [facility] Systolic blood pressure 2021-01-30 21:13:00 122 mm[Hg] [facility] Diastolic blood pressure 2021-01-30 21:13:00 68 mm[Hg] [facility] Heart rate 2021-01-30 21:13:00 60 /min [facility] Respiratory rate 2021-01-30 21:13:00 19 /min [facility] Oxygen saturation in Arterial blood by Pulse oximetry 2021-01-30 21:13:00 100 /min [facility] Body temperature 2021-01-30 21:10:00 37.22 R[facility] Body weight 2021-01-30 21:10:00 48.988 kg [facility] Systolic blood pressure 2020-01-28 13:06:00 108 mm[Hg] [facility] Diastolic blood pressure 2020-01-28 13:06:00 70 mm[Hg] [facility] Heart rate 2020-01-28 13:06:00 56 /min [facility] Body temperature 2020-01-28 13:06:00 36.56 Rene[facility] Respiratory rate 2020-01-28 13:06:00 17 /min [facility] Oxygen saturation in Arterial blood by Pulse oximetry 2020-01-28 13:06:00 100 /min [facility] Body height 2020-01-27 00:35:00 162.6 cm [facility] Body weight 2020-01-27 00:35:00 62.46 kg [facility] BMI 2020-01-27 00:35:00 23.64 kg/m2 [facility] Systolic blood pressure 2020-01-21 20:42:00 122 mm[Hg] [facility] Diastolic blood pressure 2020-01-21 20:42:00 66 mm[Hg] [facility] Heart rate 2020-01-21 20:42:00 69 /min [facility] Body temperature 2020-01-21 20:42:00 36.78 R[facility] Respiratory rate 2020-01-21 20:42:00 16 /min [facility] Body height 2020-01-21 20:42:00 162.6 cm [facility] Body weight 2020-01-21 20:42:00 62.71 kg [facility] BMI 2020-01-21 20:42:00 23.73 kg/m2 [facility] Systolic blood pressure 2019-12-23 20:12:00 124 mm[Hg] [facility] Diastolic blood pressure 2019-12-23 20:12:00 64 mm[Hg] [facility] Heart rate 2019-12-23 20:12:00 73 /min [facility] 2019-12-23 20:12:00 36.78 Renee [facility] Respiratory rate 2019-12-23 20:12:00 16 /min [facility] Body height 2019-12-23 20:12:00 162.6 cm [facility] 2019-12-23 20:12:00 62.732 kg [facility] BMI 2019-12-23 20:12:00 23.74 kg/m2 [facility] Systolic blood pressure 2019-11-24 16:22:00 107 mm[Hg] [facility] Diastolic blood pressure 2019-11-24 16:22:00 61 mm[Hg] [facility] Heart rate 2019-11-24 16:22:00 75 /min [facility] Body temperature 2019-11-24 16:22:00 36.72 R[facility] Respiratory rate 2019-11-24 16:22:00 16 /min [facility] Body height 2019-11-24 16:22:00 163.8 cm [facility] Body weight 2019-11-24 16:22:00 59.932 kg [facility] BMI 2019-11-24 16:22:00 22.33 kg/m2 [facility] Systolic blood pressure 2019-11-10 14:26:00 123 mm[Hg] [facility] Diastolic blood pressure 2019-11-10 14:26:00 66 mm[Hg] [facility] Heart rate 2019-11-10 14:26:00 82 /min [facility] Body temperature 2019-11-10 14:26:00 36.17 R[facility] Respiratory rate 2019-11-10 14:26:00 16 /min [facility] Body height 2019-11-10 14:26:00 162.6 cm [facility] Body weight 2019-11-10 14:26:00 58.089 kg [facility] BMI 2019-11-10 14:26:00 21.98 kg/m2 [facility] Systolic blood pressure 2019-07-30 13:56:00 117 mm[Hg] [facility] Diastolic blood pressure 2019-07-30 13:56:00 67 mm[Hg] [facility] Heart rate 2019-07-30 13:56:00 74 /min [facility] Body temperature 2019-07-30 13:56:00 36.33 R[facility] Respiratory rate 2019-07-30 13:56:00 16 /min [facility] Body height 2019-07-30 13:56:00 162.6 cm [facility] Body weight 2019-07-30 13:56:00 52.787 kg [facility] BMI 2019-07-30 13:56:00 19.98 kg/m2 [facility] Systolic blood pressure 2019-01-23 15:04:00 113 mm[Hg] [facility] Diastolic blood pressure 2019-01-23 15:04:00 70 mm[Hg] [facility] Heart rate 2019-01-23 15:04:00 67 /min [facility] Body temperature 2019-01-23 15:04:00 37 Renee [facility] Respiratory rate 2019-01-23 15:04:00 20 /min [facility] Body height 2019-01-23 15:04:00 162.6 cm [facility] Body weight 2019-01-23 15:04:00 57.425 kg [facility] BMI 2019-01-23 15:04:00 21.73 kg/m2 [facility] Systolic blood pressure 2019-01-04 05:19:00 117 mm[Hg] [facility] Diastolic blood pressure 2019-01-04 05:19:00 77 mm[Hg] [facility] Heart rate 2019-01-04 05:19:00 65 /min Unive [facility] Body temperature 2019-01-04 05:19:00 36.56 Renee [facility] Respiratory rate 2019-01-04 05:19:00 20 /min [facility] Body weight 2019-01-04 05:19:00 62.732 [facility] BMI 2019-01-04 05:19:00 23.74 kg/m2 [facility] Oxygen saturation in Arterial blood by Pulse oximetry 2019-01-04 05:19:00 100 /min [facility] Systolic blood pressure 2019-01-02 17:09:00 124 mm[Hg] [facility] Diastolic blood pressure 2019-01-02 17:09:00 71 mm[Hg] [facility] Heart rate 2019-01-02 17:09:00 63 /min Unive [facility] Body temperature 2019-01-02 17:09:00 36.78 Renee [facility] Respiratory rate 2019-01-02 17:09:00 18 /min [facility] Oxygen saturation in Arterial blood by Pulse oximetry 2019-01-02 09:00:00 98 /min [facility] Body height 2018-12-31 23:07:00 162.6 cm [facility] Body weight 2018-12-31 23:07:00 68.312 kg [facility] BMI 2018-12-31 23:07:00 25.85 kg/m2 [facility] Systolic blood pressure 2018-12-25 13:56:00 124 mm[Hg] [facility] Diastolic blood pressure 2018-12-25 13:56:00 78 mm[Hg] [facility] Heart rate 2018-12-25 13:56:00 69 /min Unive [facility] Body temperature 2018-12-25 13:56:00 36.72 Renee [facility] Respiratory rate 2018-12-25 13:56:00 18 /min [facility] Body height 2018-12-25 13:56:00 162.6 cm [facility] Body weight 2018-12-25 13:56:00 67.586 kg [facility] BMI 2018-12-25 13:56:00 25.58 kg/m2 [facility] Systolic blood pressure 2018-12-18 15:10:00 116 mm[Hg] [facility] Diastolic blood pressure 2018-12-18 15:10:00 68 mm[Hg] [facility] Heart rate 2018-12-18 15:10:00 78 /min [facility] Body temperature 2018-12-18 15:10:00 36.78 Renee [facility] Respiratory rate 2018-12-18 15:10:00 18 /min [facility] Body height 2018-12-18 15:10:00 162.6 cm [facility] Body weight 2018-12-18 15:10:00 67.132 kg [facility] BMI 2018-12-18 15:10:00 25.40 kg/m2 [facility] Procedures Procedure Date / Time Performed Performing Clinician Source XR FINGERS 2 VW RIGHT 2023-12-26 04:19:50 Fabrizio Morris [facility] MAGNESIUM 2023-11-28 16:10:00 Deidra Crowell [facility] TEST, URINE 2023-11-28 16:10:00 Leonard Crowell [facility] COMP. METABOLIC PANEL ([id number]) 2023-11-28 16:10:00 João Deidra [facility] CBC WITH DIFF 2023-11-28 16:10:00 [facility] URINALYSIS 2023-11-28 16:10:00 Deidra Crowell [facility] CT CERVICAL SPINE WO CONTRAST 2023-11-28 15:57:[address] [facility] HEAD WO CONTRAST 2023-11-28 15:57:57 [facility] XR CHEST 1 VW 2023-11-28 15:55:41 Deidra [facility]ell [facility] CBC WITH DIFF 2023-03-07 09:24:00 Bradni [facility] CENTRAL NEURAXIAL BLOCK 2023-03-07 01:18:00 Anna Ross [facility] CBC WITH DIFF 2023-03-07 00:38:00 Brandi [facility] HEPATITIS B SURFACE ANTIGEN 2023-03-07 00:38:00 Brandi [facility] HB ABO GROUPING 2023-03-07 00:38:00 Brandi, Ru [facility] RHO (D) IMMUNE GLOBULIN 2023-03-07 00:38:00 [facility]IGM 2023-03-07 00:38:00 Ling Paz [facility] POCT MOLECULAR FLU 2023-02-21 13:47:00 Joann Canales [facility] POCT MOLECULAR STREP 2023-02-21 13:44:00 Dav Canales [facility] POCT URINALYSIS 2023-02-21 12:57:00 Tito Canales [facility] POCT URINALYSIS 2023-02-07 20:18:00 Tito Canales [facility] CONSENT/REFUSAL FOR DIAGNOSIS AND TREATMENT 2023-01-26 02:00:15 Doctor Unassigned, [place] [facility] ASSIGNMENT OF BENEFITS 2023-01-26 01:59:10 Docto r Unassigned, [place] [facility] POCT URINALYSIS 2023-01-16 00:00:00 Charisma Campos [facility] SECOND AND THIRD TRIMESTER ULTRASOUND 2023-01-15 16:47:00 Charisma Campos [facility] GLUCOSE 1 HOUR POST PRANDIAL 2023-01-04 15:15:00 Tito Canales [facility] CBC WITH DIFF 2023-01-04 15:15:00 Tito Canales [facility] HIV 1/2 AG-AB WITH REFLEX 2023-01-04 15:15:00 Tito Canales [facility] SYPHILIS IGG/IGM 2023-01-04 15:15:00 Ad Canales [facility] TDAP VACCINE, >11 YRS, IM 2022-12-27 21:17:24 Tito Canales [facility] POCT URINALYSIS 2022-12-27 00:00:00 Charisma Campos [facility] POCT URINALYSIS 2022-11-30 00:00:00 Beth Charismapedrito Ronquillo [facility] POCT URINALYSIS 2022-10-24 00:00:00 Tito Canales [facility] POCT URINALYSIS 2022-09-19 00:00:00 Charisma Campos [facility] FIRST TRIMESTER ULTRASOUND 2022-09-05 18:29:00 Charisma Campos [facility] POCT URINALYSIS 2022-08-22 13:33:00 Tito Canales [facility] POCT TEST 2022-08-04 13:31:00 Julius Canales [facility] POCT URINALYSIS W/O SPECIFIC GRAVITY 2022-08-04 13:30:00 Tito Canales [facility] ASSIGNMENT OF BENEFITS 2022-08-04 12:52:19 Docto r Unassigned, [place] [facility] CT CERVICAL SPINE WO CONTRAST 2022-01-28 16:11:00 Kasia Chiu [facility] POCT TEST 2022-01-28 15:34:00 Jona Chiu [facility] CONSENT/REFUSAL FOR DIAGNOSIS AND TREATMENT 2022-01-28 15:06:57 Doctor Unassigned, [place] [facility] XR ANKLE <3 VW LEFT 2021-12-05 01:39:00 Wilman Sánchez [facility] XR FOOT 3+ VW LEFT 2021-12-05 01:37:53 Boris Rosario [facility] CT ABDOMEN PELVIS W CONTRAST 2021-12-05 01:25:40 Boris Rosario [facility] POCT TEST 2021-12-05 00:49:00 Boris Rosario [facility] CONSENT/REFUSAL FOR DIAGNOSIS AND TREATMENT 2021-12-05 00:14:55 Doctor Unassigned, [place] [facility] POCT TEST 2021-09-05 18:14:00 Julius Canales [facility] CT TRAUMA THORAX W CONTRAST 2021-07-26 00:36:31 Singer [facility] CT TRAUMA ABDOMEN PELVIS W CONTRAST 2021-07-26 00:36:31 Singer [facility] CT TRAUMA HEAD WO CONTRAST 2021-07-26 00:28:12 Singer [facility] CT TRAUMA CERVICAL SPINE WO CONTRAST 2021-07-26 00:28:12 Singer [facility] URINALYSIS 2021-07-25 23:43:00 Rudolph S[facility]chez [facility] TEST, SERUM 2021-07-25 23:42:00 Jesus Sánchez [facility] COMP. METABOLIC PANEL ([id number]) 2021-07-25 23:42:00 Singer [facility] ETHANOL 2021-07-25 23:42:00 Singer [facility] CBC WITH DIFF 2021-07-25 23:42:00 Rudolph S[facility]chez [facility] LACTIC ACID WHOLE BLOOD 2021-07-25 23:42:[address] [facility] CONSENT/REFUSAL FOR DIAGNOSIS AND TREATMENT 2021-07-02 21:37:26 Doctor Unassigned, [place] [facility] NOTICE OF PRIVACY PRACTICES 2021-01-30 21:03:34 Doctor Unassigned, [place] [facility] CONSENT/REFUSAL FOR DIAGNOSIS AND TREATMENT 2021-01-30 21:02:59 Doctor Unassigned, [place] [facility] EMERGENCY SERVICES AGREEMENTS AND AUTHORIZATIONS 2020-02-16 05:01:00 Doctor Unassigned, [place] [facility] CBC WITH DIFF 2020-01-28 05:18:00 Fito [facility] VENOUS CORD GAS 2020-01-27 10:20:[address] [facility] CBC WITH DIFF 2020-01-27 02:03:00 Sonali [facility] HEPATITIS B SURFACE ANTIGEN 2020-01-27 02:03:00 Sonali Chou [facility] HIV 1/2 AG-AB WITH REFLEX 2020-01-27 02:03:00 Sonali Chou [facility] GALV ONLY - SYPHILIS IGG/IGM 2020-01-27 02:03:00 Sonali Chou [facility] HB ABO GROUPING 2020-01-27 01:59:00 [facility] IMMUNE GLOBULIN 2020-01-27 01:59:00 Francis Latham [facility] COVID-19 (ID NOW RAPID TESTING) 2020-01-27 00:25:00 Sonali Chou [facility] POCT URINALYSIS 2020-01-21 20:44:00 Edis Hernandez [facility] POCT URINALYSIS 2019-12-23 00:00:00 Edis Hernandez [facility] TDAP VACCINE, >11 YRS, IM 2019-11-24 16:29:39 Edis Hernandez [facility] POCT URINALYSIS 2019-11-24 16:24:00 Edis Hernandez [facility] POCT URINALYSIS 2019-11-10 14:28:00 Edis Hernandez [facility] FLU VACC ([id number]), 6+ MONTHS, IM, QUAD 2019-07-30 14:18:55 Edis Hernandez [facility] POCT URINALYSIS 2019-07-30 13:59:00 Edis Hernandez [facility] POCT TEST 2019-07-30 13:59:00 Josh Hernandez [facility] ASSIGNMENT OF BENEFITS 2019-07-30 13:43:29 Docto r Unassigned, [place] [facility] CONSENT FOR ORAL CONTRACEPTIVES 2019-01-23 05:01:00 Doctor Unassigned, [place] [facility] POCT TEST 2019-01-23 00:00:00 Buster Gray [facility] URINALYSIS 2019-01-04 07:43:00 Boris [facility] URINALYSIS 2019-01-04 06:36:00 Boris [facility] EMERGENCY SERVICES AGREEMENTS AND AUTHORIZATIONS 2019-01-04 05:01:00 Doctor Unassigned, [place] [facility] NOTICE OF PRIVACY PRACTICES 2019-01-04 04:59:28 Doctor Unassigned, [place] [facility] CONSENT/REFUSAL FOR DIAGNOSIS AND TREATMENT 2019-01-04 04:58:57 Doctor Unassigned, [place] [facility] CBC WITH DIFFERENTIAL 2019-01-02 09:36:00 Ronny Go [facility] VENOUS CORD GAS 2019-01-01 07:00:00 Ronny Go [facility] CBC WITH DIFFERENTIAL 2018-12-31 23:59:00 Ronny Go [facility] HEPATITIS B SURFACE ANTIGEN 2018-12-31 23:59:00 Ronny Go [facility] ADC OR NAV ONLY - RPR 2018-12-31 23:59:00 Paula Go [facility] ADC, CLC OR LCC ONLY - HIV TYPE 1 AND 2 ANTIBODY SCREEN WITH P24 2018-12-31 23:59:00 Ronny Go [facility] TYPE AND SCREEN 2018-12-31 23:55:00 Ronny Go [facility] POCT URINALYSIS W/O SPECIFIC GRAVITY 2018-12-25 00:00:00 Beau Gray [facility] GC & CHLAMYDIA AMPLIFIED ASSAY 2018-12-18 15:22:00 Ronny Go [facility] GROUP B STREPTOCOCCUS BY PCR 2018-12-18 15:22:00 Ronny Go [facility] ADC / LCC - DRUG SCREEN TRIAGE 2018-12-18 15:22:00 Ronny Go [facility] DSU PRE-OP 2018-12-18 05:01:00 Doctor Unass igned, [place] [facility] POCT URINALYSIS W/O SPECIFIC GRAVITY 2018-12-18 00:00:00 Ronny Go [facility] Encounters Start Date/Time End Date/Time Encounter Type Admission Type Attending [facility] Care Facility Care Department Encounter ID Source 2023-01-26 00:05:54 Outpatient X [facility] MARY [id number] [facility] 2023-01-25 20:57:53 Emergency X [facility] [id number] [facility] 2021-03-21 22:06:10 Emergency [facility] [id number] [facility] 2021-03-18 19:54:04 Emergency [facility] [id number] [facility] 2021-03-18 16:13:35 Outpatient [facility] [id number] [facility] 2024-07-30 14:56:00 2024-07-30 17:54:00 Emergency X CRISTIANAToño Valdez, Toño [facility] ERT [id number] [facility] 2023-12-25 23:06:00 2023-12-26 00:49:00 Emergency JOSE C CRYSTAL ERICCA [facility] [id number] [facility] 2023-12-25 23:06:00 2023-12-26 00:49:00 Emergency Jose C Morris [facility] 1..840.114 350.1.13.10 4.2.7.2.686 [id number] [facility] 2023-11-28 10:05:00 2023-11-28 14:00:00 Emergency DEIDRA AGUDELO [facility] [id number] [facility] 2023-11-28 10:05:00 2023-11-28 14:00:00 Emergency Deidra Crowell [facility] 1..840.114 350.1.13.10 4.2.7.2.686 [id number] [facility] 2023-11-27 17:13:00 2023-11-27 18:29:00 Emergency MERRY HERRON ROBERT [facility] [id number] [facility] 2023-11-27 17:13:00 2023-11-27 18:29:00 Emergency Merry Mayorga [facility] 1..840.114 350.1.13.10 4.2.7.2.686 [id number] [facility] 2023-04-05 10:00:00 2023-04-05 10:00:00 Outpatient R MARIANNE VUONG [facility] [id number] [facility] 2023-03-28 09:45:00 2023-03-28 11:05:27 Outpatient R MARIANNE VUONG [facility] [id number] [facility] 2023-03-28 09:45:00 2023-03-28 11:05:27 Routine Visit Marianne Vuong [facility] & CHILD [facility] 1.840.114 350.1.13.10 4.2.7.2.686 [id number] [facility] 2023-03-06 17:46:00 2023-03-08 05:33:00 Inpatient P HIRO NG [facility] [id number] [facility] 2023-03-06 17:46:00 2023-03-08 05:33:00 Hospital Encounter Hiro Ng [facility] 1.840.114 350.1.13.10 4.2.7.2.686 [id number] [facility] 2023-03-07 10:45:00 2023-03-07 10:45:00 Outpatient R TITO CANALES [facility] [id number] [facility] 2023-03-06 20:15:00 2023-03-07 00:41:00 Anesthesia Event Abilio Ross Prameela [facility] 1.840.114 350.1.13.10 4.2.7.2.686 [id number] [facility] 2023-03-06 00:00:00 2023-03-06 00:00:00 [facility] & CHILD [facility] 1.840.114 350.1.13.10 4.2.7.2.686 [id number] [facility] 2023-03-05 15:00:00 2023-03-05 15:00:00 Outpatient R TITO CANALES [facility] [id number] [facility] 2023-02-28 15:00:00 2023-02-28 15:00:00 Outpatient R TITO CANALES [facility] [id number] [facility] 2023-02-22 00:00:00 2023-02-22 00:00:00 Telephone Tito Canales [facility] & CHILD [facility] ..840.114 350.1.13.10 4.2.7.2.686 [id number] 107 [id number] [facility] 2023-02-21 07:45:00 2023-02-21 08:45:54 Outpatient R TITO CANALES [facility] [id number] [facility] 2023-02-21 07:45:00 2023-02-21 08:45:54 Routine Visit Tito Canales [facility] & CHILD [facility] 1..840.114 350.1.13.10 4.2.7.2.686 [id number] [facility] 2023-02-20 00:00:00 2023-02-20 00:00:00 Telephone Tito Canales [facility] & CHILD [facility] 1..840.114 350.1.13.10 4.2.7.2.686 [id number] [facility] 2023-02-19 15:15:00 2023-02-19 15:15:00 Outpatient R TITO CANALES [facility] [id number] [facility] 2023-02-14 13:00:00 2023-02-14 13:00:00 Outpatient R TITO CANALES [facility] [id number] [facility] 2023-02-07 15:15:00 2023-02-07 15:30:00 Routine Visit Tito Canales [facility] & CHILD [facility] 1.840.114 350.1.13.10 4.2.7.2.686 [id number] [facility] 2023-02-07 15:15:00 2023-02-07 15:15:00 Outpatient R TITO CANALES [facility] [id number] [facility] 2023-01-30 15:45:00 2023-01-30 15:45:00 Outpatient R ALLY TITO [facility] [id number] [facility] 2023-01-25 21:07:00 2023-01-25 23:36:00 Outpatient X RONNY GO [facility] [id number] [facility] 2023-01-25 21:07:00 2023-01-25 23:36:00 Emergency Ronny Go [facility] 1.840.114 350.1.13.10 4.2.7.2.686 [id number] [facility] 2023-01-25 00:00:00 2023-01-25 00:00:00 Nurse Triage Shantell Jacques [facility] 1.840.114 350.1.13.10 4.2.7.2.686 [id number] [facility] 2023-01-16 16:00:00 2023-01-16 16:24:21 Outpatient R TITO CANALES [facility] [id number] [facility] 2023-01-16 16:00:00 2023-01-16 16:24:21 Routine Visit Tito Canales [facility] & CHILD [facility] 1.840.114 350.1.13.10 4.2.7.2.686 [id number] [facility] 2023-01-16 00:00:00 2023-01-16 00:00:00 Case Management Marianne Vuong [facility] & CHILD [facility] 1.840.114 350.1.13.10 4.2.7.2.686 [id number] [facility] 2023-01-15 11:30:00 2023-01-15 15:19:27 Outpatient P ALAYNA PATEL [facility] [id number] [facility] 2023-01-15 11:30:00 2023-01-15 15:19:27 Product Support Manager Visit Ultrasound, Alayna Ordaz [facility] 1.0.114 350.1.13.10 4.2.7.2.686 [id number] [facility] 2023-01-11 10:30:00 2023-01-11 10:30:00 Outpatient R TITO CANALES [facility] [id number] [facility] 2023-01-10 15:45:00 2023-01-10 15:45:00 Outpatient R TITO CANALES [facility] [id number] [facility] 2023-01-10 00:00:00 2023-01-10 00:00:00 Telephone Tito Canales [facility] .840.114 350.1.13.10 4.2.7.2.686 [id number] 107 [id number] [facility] 2023-01-05 00:00:00 2023-01-05 00:00:00 Telephone Tito Canales [facility] 1.840.114 350.1.13.10 4.2.7.2.686 [id number] [facility] 2023-01-05 00:00:00 2023-01-05 00:00:00 Telephone Tito Canales [facility] 1.2.840.114 350.1.13.10 4.2.7.2.686 [id number] [facility] 2023-01-04 08:30:00 2023-01-04 09:22:49 Outpatient R TITO CANALES [facility] [id number] [facility] 2023-01-04 08:30:00 2023-01-04 09:22:49 Product Support Manager Visit Lab, Ang-Rmchp Tito Canales [facility] & CHILD [facility] 1..840.114 350.1.13.10 4.2.7.2.686 [id number] [facility] 2023-01-02 10:00:00 2023-01-02 10:00:00 Outpatient R [facility] [id number] [facility] 2022-12-27 16:00:00 2022-12-27 16:32:19 Outpatient R TITO CANALES [facility] [id number] [facility] 2022-12-27 16:00:00 2022-12-27 16:32:19 Routine Visit Tito Canales [facility] 1..840.114 350.1.13.10 4.2.7.2.686 [id number] [facility] 2022-12-22 14:15:00 2022-12-22 14:15:00 Outpatient R TITO CANALES [facility] [id number] [facility] 2022-12-18 15:45:00 2022-12-18 15:45:00 Outpatient R TITO CANALES [facility] [id number] [facility] 2022-12-14 10:45:00 2022-12-14 10:45:00 Outpatient R TITO CANALES [facility] [id number] [facility] 2022-11-30 08:45:00 2022-11-30 09:33:24 Outpatient R CLAUDIO URBANO [facility] [id number] [facility] 2022-11-30 08:45:00 2022-11-30 09:33:24 Routine Visit Risk, Ang-Rmchp-N p/High Claudio Urbano [facility]AL [facility]IST [facility] CHILD [facility] ..840.114 350.1.13.10 4.2.7.2.686 [id number] 107 [id number] [facility] 2022-11-23 08:30:00 2022-11-23 08:30:00 Outpatient R [facility] [id number] [facility] 2022-11-20 07:45:00 2022-11-20 07:45:00 Outpatient R TITO CANALES [facility] [id number] [facility] 2022-11-10 00:00:00 2022-11-10 00:00:00 Abstract Tito Canales Nikolay [facility]ILD [facility] ..840.114 350.1.13.10 4.2.7.2.686 [id number] [facility] 2022-11-03 15:00:00 2022-11-03 16:00:00 Product Support Manager Visit Ultrasound, Tatiana Watson [facility]AL [facility]IST [facility] MAT[facility]NAL & CHILD [facility] ..840.114 350.1.13.10 4.2.7.2.686 [id number] [facility] 2022-11-03 15:00:00 2022-11-03 15:00:00 Outpatient TATIANA ANGELES [facility] [id number] [facility] 2022-11-02 13:45:00 2022-11-02 13:45:00 Outpatient R CLAUDIO URBANO [facility] [id number] [facility] 2022-10-24 07:45:00 2022-10-24 08:08:43 Outpatient R TITO CANALES [facility] [id number] [facility] 2022-10-24 07:45:00 2022-10-24 08:08:43 Routine Visit Tito Canales [facility] CHILD [facility] .840.114 350.1.13.10 4.2.7.2.686 [id number] [facility] 2022-10-20 13:00:00 2022-10-20 13:00:00 Outpatient P [facility] [id number] [facility] 2022-10-17 12:45:00 2022-10-17 12:45:00 Outpatient R TITO CANALES [facility] [id number] [facility] 2022-09-19 12:45:00 2022-09-19 13:25:32 Outpatient R TITO CANALES [facility] [id number] [facility] 2022-09-19 12:45:00 2022-09-19 13:25:32 Routine Visit Tito Canales [facility] .840.114 350.1.13.10 [id number] [id number] [facility] 2022-09-06 00:00:00 2022-09-06 00:00:00 Telephone Tito Canales [facility] .2.840.114 350.1.13.10 [id number] [id number] 107 [id number] [facility] 2022-09-06 00:00:00 2022-09-06 00:00:00 Abstract Charisma Campos [facility] 1.0.114 350.1.13.10 4.2.7.2.686 [id number] 107 [id number] [facility] 2022-09-05 14:15:00 2022-09-05 14:15:00 Outpatient R XAVIER VANGIE [facility] [id number] [facility] 2022-09-05 14:15:00 2022-09-05 14:15:00 Product Support Manager Visit Lab, [facility] 1..114 350.1.13.10 4.2.7.2.686 [id number] [facility] 2022-09-05 13:00:00 2022-09-05 13:41:13 Product Support Manager Visit 1, [facility] Us Room [facility] 1..114 350.1.13.10 4.2.7.2.686 [id number] 104 [id number] [facility] 2022-09-05 00:00:00 2022-09-05 00:00:00 Letter (Out) [facility] 1..114 350.1.13.10 4.2.7.2.686 [id number] [facility] 2022-08-24 00:00:00 2022-08-24 00:00:00 Telephone Tito Canales [facility] 1..114 350.1.13.10 4.2.7.2.686 [id number] [facility] 2022-08-22 08:30:00 2022-08-22 09:24:24 Outpatient R TITO CANALES [facility] [id number] [facility] 2022-08-22 08:30:00 2022-08-22 09:24:24 Initial Visit Tito Canales Nikolay [facility] 1.84.114 350.1.13.10 4.2.7.2.686 [id number] [facility] 2022-08-11 08:30:00 2022-08-11 08:30:00 Outpatient R TIMBOMARIANNE PRICE [facility] [id number] [facility] 2022-08-04 08:30:00 2022-08-04 09:00:00 Initial Visit Tito Canales [facility] 1.840.114 350.1.13.10 4.2.7.2.686 [id number] [facility] 2022-08-04 08:30:00 2022-08-04 08:30:00 Outpatient R DAV CANALESILOLA [facility] [id number] [facility] 2022-08-04 00:00:00 2022-08-04 00:00:00 Orders Only Doctor Unassigned, Barataria [facility] 1.84.114 350.1.13.10 4.2.7.2.686 [id number] [id number] [facility] 2022-01-28 10:10:00 2022-01-28 12:07:00 Emergency X KASIA CHIU [facility] [id number] [facility] 2022-01-28 10:10:00 2022-01-28 12:07:00 Emergency Kasia Chiu [facility] 1..114 350.1.13.10 4.2.7.2.686 [id number] [facility] 2021-12-04 19:40:00 2021-12-04 22:40:00 Emergency X RUDOLPH SÁNCHEZ [facility] [id number] [facility] 2021-12-04 19:40:00 2021-12-04 22:40:00 Emergency Rudolph Sánchez [facility] 1..840.114 350.1.13.10 4.2.7.2.686 [id number] [facility] 2021-10-12 13:30:00 2021-10-12 13:30:00 Outpatient KRYS WATKINSDEANA [facility] [id number] [facility] 2021-09-27 09:00:00 2021-09-27 09:00:00 Outpatient KRYS WATKINSDEANA [facility] [id number] [facility] 2021-09-05 13:00:00 2021-09-05 13:25:49 [facility] [id number] [facility] 2021-09-05 13:00:00 2021-09-05 13:25:49 [facility] 1..840.114 350.1.13.10 4.2.7.2.686 [id number] [facility] 2021-07-25 17:17:00 2021-07-25 20:45:00 Emergency X RUDOLPH SÁNCHEZ [facility] E[facility] [id number] [facility] 2021-07-25 17:17:00 2021-07-25 20:45:00 Emergency Rudolph Sánchez [facility] 1..840.114 350.1.13.10 4.2.7.2.686 [id number] [facility] 2021-07-02 15:52:00 2021-07-02 17:27:00 Emergency X Toño ART [facility] ERT [id number] [facility] 2021-07-02 15:52:00 2021-07-02 17:27:00 Emergency Toño Art [facility] 1.2840.114 350.1.13.10 4.2.7.2.686 [id number] [id number] [facility] 2021-01-30 16:07:00 2021-01-30 16:53:00 Emergency Karen Flores [facility] 1.2840.114 350.1.13.10 4.2.7.2.686 [id number] [id number] [facility] 2021-01-30 00:00:00 2021-01-30 00:00:00 Orders Only Doctor Unassigned, Barataria [facility] 1.840.114 350.1.13.10 4.2.7.2.686 [id number] [facility] 2020-10-27 08:30:00 2020-10-27 08:30:00 Outpatient TITO CHU [facility] [id number] [facility] 2020-10-25 00:00:00 2020-10-25 00:00:00 Telephone Tito Canales [facility] 1.840.114 350.1.13.10 4.2.7.2.686 [id number] [facility] 2020-08-31 10:00:00 2020-08-31 10:00:00 Outpatient LORRIE YBARRA [facility] [id number] [facility] 2020-02-18 15:00:00 2020-02-18 15:00:00 Outpatient R EDIS HERNANDEZ [facility] [id number] [facility] 2020-02-16 00:00:00 2020-02-16 00:00:00 Orders Only Doctor Unassigned, Barataria [facility] 1.2840.114 350.1.13.10 4.2.7.2.686 [id number] [id number] [facility] 2020-01-28 14:45:00 2020-01-28 14:45:00 Outpatient R EDIS HERNANDEZ [facility] [id number] [facility] 2020-01-26 19:01:00 2020-01-28 12:10:00 Hospital Encounter Hiro Ng [facility] 1.2840.114 350.1.13.10 4.2.7.2.686 [id number] [facility] 2020-01-21 15:33:40 2020-01-21 16:13:23 Routine Visit Tito Canales [facility] 1.2.840.114 350.1.13.10 4.2.7.2.686 [id number] 107 [id number] [facility] 2020-01-21 15:30:00 2020-01-21 15:30:00 Outpatient R TITO CANALES [facility] [id number] [facility] 2020-01-06 13:00:00 2020-01-06 13:00:00 Outpatient EDIS WATKINS [facility] [id number] [facility] 2019-12-23 15:05:17 2019-12-23 15:32:09 Routine Visit Edis Hernandez [facility] 1.2.840.114 350.1.13.10 4.2.7.2.686 [id number] 107 [id number] [facility] 2019-12-23 15:00:00 2019-12-23 15:00:00 Outpatient EDIS WATKINS [facility] [id number] [facility] 2019-12-22 13:00:00 2019-12-22 13:00:00 Outpatient EDIS WATKINS [facility] [id number] [facility] 2019-12-19 00:00:00 2019-12-19 00:00:00 Abstract Edis Hernandez [facility] 1.2.840.114 350.1.13.10 4.2.7.2.686 [id number] 107 [id number] [facility] 2019-12-18 11:35:01 2019-12-18 11:56:50 Product Support Manager Visit Ultrasound, Johnnie Cuadra [facility] 1.2.840.114 350.1.13.10 4.2.7.2.686 [id number] [facility] 2019-12-18 11:30:00 2019-12-18 11:30:00 Outpatient P [facility] [id number] [facility] 2019-12-08 13:00:00 2019-12-08 13:00:00 Outpatient R KRYS HERNANDEZCHELA [facility] [id number] [facility] 2019-12-08 00:00:00 2019-12-08 00:00:00 Telephone Edis Hernandez [facility] 1.2.840.114 350.1.13.10 4.2.7.2.686 [id number] 107 [id number] [facility] 2019-11-24 11:02:57 2019-11-24 11:41:19 Routine Visit Edis Hernandez [facility] 1.2.840.114 350.1.13.10 4.2.7.2.686 [id number] [facility] 2019-11-24 11:00:00 2019-11-24 11:00:00 Outpatient R STEVE HERNANDEZDick [facility] [id number] [facility] 2019-11-11 07:48:15 2019-11-11 08:20:26 Product Support Manager Visit Lab, Baldo Tito Canales [facility] 1.84.114 350.1.13.10 4.2.7.2.686 [id number] [facility] 2019-11-11 08:00:00 2019-11-11 08:00:00 Outpatient R TITO CANALES [facility] [id number] [facility] 2019-11-10 09:14:29 2019-11-10 09:49:40 Routine Visit Tito Canales [facility] 1.840.114 350..13.10 4.2.7.2.686 [id number] 107 [id number] [facility] 2019-11-10 09:15:00 2019-11-10 09:15:00 Outpatient R TITO CANALES [facility] [id number] [facility] 2019-10-22 14:30:00 2019-10-22 14:30:00 Outpatient R EDIS HERNANDEZ [facility] [id number] [facility] 2019-09-15 08:15:00 2019-09-15 08:15:00 Outpatient R EDIS HERNANDEZ [facility] [id number] [facility] 2019-09-10 14:30:00 2019-09-10 14:30:00 Outpatient R EDIS HERNANDEZ [facility] [id number] [facility] 2019-09-10 14:30:00 2019-09-10 14:30:00 Outpatient R EDIS HERNANDEZ [facility] [id number] [facility] 2019-09-04 14:25:10 2019-09-04 15:25:10 Product Support Manager Visit Ultrasound, Tatiana Watson [facility] 1.84.114 350.1.13.10 4.2.7.2.686 [id number] [facility] 2019-09-04 11:00:00 2019-09-04 11:00:00 Outpatient R DAVID EDIS [facility] [id number] [facility] 2019-09-04 00:00:00 2019-09-04 00:00:00 Abstract Krys Hernandezchela Dubon [facility] 1..840.114 350.1.13.10 4.2.7.2.686 [id number] 107 [id number] [facility] 2019-08-28 10:00:00 2019-08-28 10:00:00 Outpatient R DAVID EDIS [facility] [id number] [facility] 2019-08-26 09:45:00 2019-08-26 09:45:00 Outpatient R DAVID EDIS [facility] [id number] [facility] 2019-08-14 09:00:00 2019-08-14 09:00:00 Outpatient P [facility] [id number] [facility] 2019-08-11 09:00:00 2019-08-11 09:00:00 Outpatient P [facility] [id number] [facility] 2019-07-31 00:00:00 2019-07-31 00:00:00 Telephone David Edis Dubon [facility] 1..840.114 350.1.13.10 4.2.7.2.686 [id number] 107 [id number] [facility] 2019-07-30 08:47:20 2019-07-30 10:20:12 Initial Visit HernandezEdis [facility] 1..840.114 350.1.13.10 4.2.7.2.686 [id number] 107 [id number] [facility] 2019-07-30 08:00:00 2019-07-30 08:00:00 Outpatient R [facility] [id number] [facility] 2019-07-30 08:00:00 2019-07-30 08:00:00 Outpatient EDIS WATKINS [facility] [id number] [facility] 2019-07-30 00:00:00 2019-07-30 00:00:00 Orders Only Doctor Unassigned, Barataria [facility] 1.2840.114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 code = 704-7) 0.06 10*3/uL 0.01-0.07 Lab Interpretation (test code = 83637-7) Abnormal [facility] URINALYSIS W SPECIFIC [id number] 21:03:00* Test Item Value Reference Range Interpretation Comme nts POCT U SP GRAV (test code = 3255) . 1.005-1.025 POCT PH U (test code = 3254) . 5-8 POCT U LEUK EST (test code = 3263) . Negative - Negative POCT U NIT (test code = 3262) . Negative - Negati ve POCT U PROT (test code = 3259) 1+ Negative - Negat earl POCT U GLU (test code = 3256) negative Negative - Negati ve POCT U KETONE (test code = 3258) . Negative - Neg ative POCT U UROBILI (test code = 3260) . 0.2-1 POCT U BILI (test code = 3261) . Negative - Negat earl POCT U BLD (test code = 3257) . Negative - Negati ve POCT U COLOR (test code = 3266) . POCT U APPEAR (test code = 3267) . [facility] URINALYSIS W SPECIFIC [id number] 13:57:00* Test Item Value Reference Range Interpretation Comme nts POCT U SP GRAV (test code = 3255) . 1.005-1.025 POCT PH U (test code = 3254) 9 mg/dl 5-8 A POCT U LEUK EST (test code = 3263) 2+ Negative - Negative POCT U NIT (test code = 3262) negative Negative - Negati ve POCT U PROT (test code = 3259) 1+ Negative - Negat earl POCT U GLU (test code = 3256) negative Negative - Negati ve POCT U KETONE (test code = 3258) negative Negative - Neg ative POCT U UROBILI (test code = 3260) . 0.2-1 POCT U BILI (test code = 3261) . Negative - Negat earl POCT U BLD (test code = 3257) negative Negative - Negati ve POCT U COLOR (test code = 3266) . POCT U APPEAR (test code = 3267) . Lab Interpretation (test cod e = 68351-8) Abnormal [facility] URINALYSIS W SPECIFIC [id number] 12:55:00* Test Item Value Reference Range Interpretation Comme nts POCT U SP GRAV (test code = 3255) . 1.005-1.025 POCT PH U (test code = 3254) 6 mg/dl 5-8 POCT U LEUK EST (test code = 3263) negative Negative - Negative POCT U NIT (test code = 3262) negative Negative - Negati ve POCT U PROT (test code = 3259) negative Negative - Negat earl POCT U GLU (test code = 3256) negative Negative - Negati ve POCT U KETONE (test code = 3258) negative Negative - Neg ative POCT U UROBILI (test code = 3260) . 0.2-1 POCT U BILI (test code = 3261) . Negative - Negat earl POCT U BLD (test code = 3257) negative Negative - Negati ve POCT U COLOR (test code = 3266) . POCT U APPEAR (test code = 3267) . [facility] URINALYSIS W SPECIFIC [id number] 17:43:00* Test Item Value Reference Range Interpretation Comme nts POCT U SP GRAV (test code = 3255) . 1.005-1.025 POCT PH U (test code = 3254) . 5-8 POCT U LEUK EST (test code = 3263) . Negative - Negative POCT U NIT (test code = 3262) . Negative - Negati ve POCT U PROT (test code = 3259) trace Negative - Negat earl POCT U GLU (test code = 3256) negative Negative - Negati ve POCT U KETONE (test code = 3258) . Negative - Neg ative POCT U UROBILI (test code = 3260) . 0.2-1 POCT U BILI (test code = 3261) . Negative - Negat earl POCT U BLD (test code = 3257) . Negative - Negati ve POCT U COLOR (test code = 3266) . POCT U APPEAR (test code = 3267) . [facility] URINALYSIS W SPECIFIC [id number] 13:33:00* Test Item Value Reference Range Interpretation Comme nts POCT U SP GRAV (test code = 3255) . 1.005-1.025 POCT PH U (test code = 3254) . 5-8 POCT U LEUK EST (test code = 3263) . Negative - N egative POCT U NIT (test code = 3262) . Negative - Negati ve POCT U PROT (test code = 3259) neg Negative - Negat earl POCT U GLU (test code = 3256) neg Negative - Negati ve POCT U KETONE (test code = 3258) . Negative - Neg ative POCT U UROBILI (test code = 3260) . 0.2-1 POCT U BILI (test code = 3261) . Negative - Negat earl POCT U BLD (test code = 3257) . Negative - Negati ve POCT U COLOR (test code = 3266) . POCT U APPEAR (test code = 3267) . [facility] URINALYSIS W SPECIFIC [id number] 13:33:00* Test Item Value Reference Range Interpretation Comme nts POCT U SP GRAV (test code = 3255) . 1.005-1.025 POCT PH U (test code = 3254) . 5-8 POCT U LEUK EST (test code = 3263) . Negative - N egative POCT U NIT (test code = 3262) . Negative - Negati ve POCT U PROT (test code = 3259) neg Negative - Negat earl POCT U GLU (test code = 3256) neg Negative - Negati ve POCT U KETONE (test code = 3258) . Negative - Neg ative POCT U UROBILI (test code = 3260) . 0.2-1 POCT U BILI (test code = 3261) . Negative - Negat earl POCT U BLD (test code = 3257) . Negative - Negati ve POCT U COLOR (test code = 3266) . POCT U APPEAR (test code = 3267) . [facility] URINALYSIS W SPECIFIC [id number] 13:33:00* Test Item Value Reference Range Interpretation Comme nts POCT U SP GRAV (test code = 3255) . 1.005-1.025 POCT PH U (test code = 3254) . 5-8 POCT U LEUK EST (test code = 3263) . Negative - N egative POCT U NIT (test code = 3262) . Negative - Negati ve POCT U PROT (test code = 3259) neg Negative - Negat earl POCT U GLU (test code = 3256) neg Negative - Negati ve POCT U KETONE (test code = 3258) . Negative - Neg ative POCT U UROBILI (test code = 3260) . 0.2-1 POCT U BILI (test code = 3261) . Negative - Negat earl POCT U BLD (test code = 3257) . Negative - Negati ve POCT U COLOR (test code = 3266) . POCT U APPEAR (test code = 3267) . [facility] URINALYSIS W SPECIFIC [id number] 13:33:00* Test Item Value Reference Range Interpretation Comme nts POCT U SP GRAV (test code = 3255) . 1.005-1.025 POCT PH U (test code = 3254) . 5-8 POCT U LEUK EST (test code = 3263) . Negative - N egative POCT U NIT (test code = 3262) . Negative - Negati ve POCT U PROT (test code = 3259) neg Negative - Negat earl POCT U GLU (test code = 3256) neg Negative - Negati ve POCT U KETONE (test code = 3258) . Negative - Neg ative POCT U UROBILI (test code = 3260) . 0.2-1 POCT U BILI (test code = 3261) . Negative - Negat earl POCT U BLD (test code = 3257) . Negative - Negati ve POCT U COLOR (test code = 3266) . POCT U APPEAR (test code = 3267) . [facility] URINALYSIS W SPECIFIC [id number] 13:33:00* Test Item Value Reference Range Interpretation Comme nts POCT U SP GRAV (test code = 3255) . 1.005-1.025 POCT PH U (test code = 3254) . 5-8 POCT U LEUK EST (test code = 3263) . Negative - N egative POCT U NIT (test code = 3262) . Negative - Negati ve POCT U PROT (test code = 3259) neg Negative - Negat earl POCT U GLU (test code = 3256) neg Negative - Negati ve POCT U KETONE (test code = 3258) . Negative - Neg ative POCT U UROBILI (test code = 3260) . 0.2-1 POCT U BILI (test code = 3261) . Negative - Negat earl POCT U BLD (test code = 3257) . Negative - Negati ve POCT U COLOR (test code = 3266) . POCT U APPEAR (test code = 3267) . [facility] URINALYSIS W SPECIFIC [id number] 13:33:00* Test Item Value Reference Range Interpretation Comme nts POCT U SP GRAV (test code = 3255) . 1.005-1.025 POCT PH U (test code = 3254) . 5-8 POCT U LEUK EST (test code = 3263) . Negative - N egative POCT U NIT (test code = 3262) . Negative - Negati ve POCT U PROT (test code = 3259) neg Negative - Negat earl POCT U GLU (test code = 3256) neg Negative - Negati ve POCT U KETONE (test code = 3258) . Negative - Neg ative POCT U UROBILI (test code = 3260) . 0.2-1 POCT U BILI (test code = 3261) . Negative - Negat earl POCT U BLD (test code = 3257) . Negative - Negati ve POCT U COLOR (test code = 3266) . POCT U APPEAR (test code = 3267) . [facility] URINALYSIS W/O SPECIFIC [id number] 13:31:00* Test Item Value Reference Range Interpretation Comme nts POCT PH U (test code = 3254) 5 mg/dl 5-8 POCT U LEUK EST (test code = 3263) Trace Negative - Negative POCT U NIT (test code = 3262) Neg Negative - Negati ve POCT U PROT (test code = 3259) Trace Negative - Negat earl POCT U GLU (test code = 3256) Neg Negative - Negati ve POCT U KETONE (test code = 3258) None Negative - Neg ative POCT U BLD (test code = 3257) Trace Negative - Negati ve [facility] [id number] 13:31:00* Test Item Value Reference Range Interpretation Comme nts POCT PREG (test code = 1605) Positive On board controls acceptable with C Line (test code = 3574) Yes POCT PREG LOT # (test code = 3575) POCT PREG TEST DATE ( test code = 3576) [facility] URINALYSIS W/O SPECIFIC [id number] 13:31:00* Test Item Value Reference Range Interpretation Comme nts POCT PH U (test code = 3254) 5 mg/dl 5-8 POCT U LEUK EST (test code = 3263) Trace Negative - Negative POCT U NIT (test code = 3262) Neg Negative - Negati ve POCT U PROT (test code = 3259) Trace Negative - Negat earl POCT U GLU (test code = 3256) Neg Negative - Negati ve POCT U KETONE (test code = 3258) None Negative - Neg ative POCT U BLD (test code = 3257) Trace Negative - Negati ve [facility] [id number] 13:31:00* Test Item Value Reference Range Interpretation Comme nts POCT PREG (test code = 1605) Positive On board controls acceptable with C Line (test code = 3574) Yes POCT PREG LOT # (test code = 3575) POCT PREG TEST DATE ( test code = 3576) [facility] [id number] 15:34:00* Test Item Value Reference Range Interpretation Comme nts POCT PREG (test code = 1605) negative On board controls acceptable with C Line (test code = 3574) present POCT PREG LOT # (test code = 3575) [id number] POCT PREG TEST DATE ( test code = 3576) 04/19/23 Lab Interpretation (test cod e = 70879-7) Normal [facility] [id number] 00:49:00* Test Item Value Reference Range Interpretation Comme nts POCT PREG (test code = 1605) negative On board controls acceptable with C Line (test code = 3574) present POCT PREG LOT # (test code = 3575) [id number] POCT PREG TEST DATE ( test code = 3576) 2023-03-20 Lab Interpretation (test cod e = 93189-6) Normal [facility] [id number] 18:14:00* Test Item Value Reference Range Interpretation Comme nts POCT PREG (test code = 1605) Negative On board controls acceptable with C Line (test code = 3574) Yes POCT PREG LOT # (test code = 3575) POCT PREG TEST DATE ( test code = 3576) [facility] WITH [id number] 02:03:49* Test Item Value Reference Range Interpretation Comme nts WBC (test code = 6690-2) See_Comment [Automated messa ge] The system which generated this result transmitted reference range: 4.30 - 11.10 10*3/?L. The reference range was not used to interpret this result as normal/abnormal. RBC (test code = 789-8) See_Comment [Automated messa ge] The system which generated this result transmitted reference range: 3.93 - 5.25 10*6/?L. The reference range was not used to interpret this result as normal/abnormal. HGB (test code = 718-7) 12.7 g/dL 11.6-15.0 HCT (test code = 4544-3) 38.0 % 35.7-45.2 MCV (test code = 787-2) 88.2 fL 80.6-95.5 MCH (test code = 785-6) 29.5 pg 25.9-32.8 MCHC (test code = 786-4) 33.4 g/dL 31.6-35.1 RDW-SD (test code = 02175-5) 41.0 fL 39.0-49.9 RDW-CV (test code = 788-0) 12.6 % 12.0-15.5 PLT (test code = 777-3) See_Comment [Automated messa ge] The system which generated this result transmitted reference range: 166 - 358 10*3/?L. The reference range was not used to interpret this result as normal/abnormal. MPV (test code = 77356-3) 11.1 fL 9.5-12.9 NRBC/100 WBC (test code = 4032204852) See_Comment [Automated me ssage] The system which generated this result transmitted reference range: 0.0 - 10.0 /100 WBCs. The reference range was not used to interpret this result as normal/abnormal. NRBC x10^3 (test code = 9435954713) <0.01 See_Comment [Automated me ssage] The system which generated this result transmitted reference range: 10*3/?L. The reference range was not used to interpret this result as normal/abnormal. GRAN MAT (NEUT) % (test code = 770-8) 63.0 % IMM GRAN % (test code = 9618672029) 0.20 % LYMPH % (test code = 736-9) 25.9 % MONO % (test code = 5905-5) 7.2 % EOS % (test code = 713-8) 2.9 % BASO % (test code = 706-2) 0.8 % GRAN MAT x10^3(ANC) (test code = 5792202738) 4.14 10*3/uL 1.88-7.09 IMM GRAN x10^3 (test code = 3783683709) <0.03 0.00-0.06 LYMPH x10^3 (test code = 731-0) 1.70 10*3/uL 1.32-3.29 MONO x10^3 (test code = 742-7) 0.47 10*3/uL 0.33-0.92 EOS x10^3 (test code = 711-2) 0.19 10*3/uL 0.03-0.39 BASO x10^3 (test code = 704-7) 0.05 10*3/uL 0.01-0.07 [facility] [id number] 00:41:38* Test Item Value Reference Range Interpretation Comme nts PREG SERUM (test code = 9378637445) Negative GABE (test code = GABE) Less than 10 IU/L. ?If low titer or ectopic is suspected, resubmit specimen in 48-72 hours. [facility] CenterETHANOL2022-[facility] 00:27:32* Test Item Value Reference Range Interpretation Comme nts ALCOHOL (test code = 6122519364) <10 mg/dL GABE (test code = GABE) <10 Ihmctumj12-863 Toxic>100 Depression of PRINCIPAL SYSTEMS ARCHITECT>400 Fatalities Reported [facility] CenterCOMP[facility]OLIC PANEL (36180)2021-07-26 00:27:02* Test Item Value Reference Range Interpretation Comme nts NA (test code = 1238744898) 140 mmol/L 135-145 K (test code = 5100538012) 4.1 mmol/L 3.5-5.0 CL (test code = 6554511183) 106 mmol/L 98-108 CO2 TOTAL (test code = 1930822111) 24 mmol/L 23-31 AGAP (test code = 2033153677) 2-16 BUN (test code = 8243294853) 8 mg/dL 7-23 GLUCOSE (test code = 7422450028) 101 mg/dL 70-110 CREATININE (test code = 8784370146) 0.68 mg/dL 0.50-1.04 TOTAL BILI (test code = 6276033874) 0.6 mg/dL 0.1-1.1 CALCIUM (test code = 3083156401) 9.3 mg/dL 8.6-10.6 T PROTEIN (test code = 7347679769) 7.2 g/dL 6.3-8.2 ALBUMIN (test code = 2671925329) 4.5 g/dL 3.5-5.0 ALK PHOS (test code = 4147393413) 57 U/L 34-122 ALTv (test code = 1742-6) 12 U/L 5-35 AST(SGOT) (test code = 5302076074) 18 U/L 13-40 eGFR (test code = 9472522909) mL/min/1.73m2 GABE (test code = GABE) Association of Glomerular Filtration Rate (GFR) and Staging of Kidney Disease* + + +- +| GFR (mL/min/1.73 m2) ?| With Kidney Damage ?| ?Without Kidney Damage+ ------+ ----+ ------+| ?>90 ?| ?Stage one ?| ? Normal ?+ -+ + -+| ?60-89 ?| ?Stage two ?| ? Decreased GFR ? + + +- +| ?30-59 ?| ?Stage three ?| ? Stage three ? + + +- +| ?15-29 ?| ?Stage four ? | ? Stage four ?+ -+ + -+| ?<15 (or dialysis) ? ?| ?Stage five ? | ? Stage five ?+ -+ + -+ *Each stage assumes the associated GFR level has been in effect for at least three months. ?Stages 1 to 5, with or without kidney disease, indicate chronic kidney disease. Notes: Determination of stages one and two (with eGFR >59mL/min/1.73 m2) requires estimation of kidney damage for at least three months as defined by structural or functional abnormalities of the kidney, manifested by either:Pathological abnormalities or Markers of kidney damage (including abnormalities in the composition of the blood or urine or abnormalities in imaging tests). [facility] with [id number] 05:29:00* Test Item Value Reference Range Interpretation Comme nts WBC (test code = 6690-2) See_Comment H [Automated [employer]] The system which generated this result transmitted reference range: 4.30 - 11.10 10*3/?L. The reference range was not used to interpret this result as normal/abnormal. RBC (test code = 789-8) See_Comment L [Automated messa ge] The system which generated this result transmitted reference range: 3.93 - 5.25 10*6/?L. The reference range was not used to interpret this result as normal/abnormal. HGB (test code = 718-7) 10.7 g/dL 11.6-15 L HCT (test code = 4544-3) 32.5 % 35.7-45.2 L MCV (test code = 787-2) 90.8 fL 80.6-95.5 MCH (test code = 785-6) 29.9 pg 25.9-32.8 MCHC (test code = 786-4) 32.9 g/dL 31.6-35.1 RDW-SD (test code = 92598-4) 42.2 fL 39-49.9 RDW-CV (test code = 788-0) 12.9 % 12-15.5 PLT (test code = 777-3) See_Comment [Automated messa ge] The system which generated this result transmitted reference range: 166 - 358 10*3/?L. The reference range was not used to interpret this result as normal/abnormal. MPV (test code = 49339-7) 11.1 fL 9.5-12.9 NRBC/100 WBC (test code = 3532592514) See_Comment [Automated [employer] ssage] The system which generated this result transmitted reference range: 0.0 - 10.0 /100 WBCs. The reference range was not used to interpret this result as normal/abnormal. NRBC x10^3 (test code = 6054777934) <0.01 See_Comment [Automated messa ge] The system which generated this result transmitted reference range: 10*3/?L. The reference range was not used to interpret this result as normal/abnormal. GRAN MAT (NEUT) % (test code = 770-8) 70.8 % IMM GRAN % (test code = 5264565253) 1.00 % LYMPH % (test code = 736-9) 18.9 % MONO % (test code = 5905-5) 8.0 % EOS % (test code = 713-8) 1.0 % BASO % (test code = 706-2) 0.3 % GRAN MAT x10^3(ANC) (test code = 7205308024) 8.53 10*3/uL 1.88-7.09 H IMM GRAN x10^3 (test code = 6011620024) 0.12 10*3/uL 0-0.06 H LYMPH x10^3 (test code = 731-0) 2.27 10*3/uL 1.32-3.29 MONO x10^3 (test code = 742-7) 0.96 10*3/uL 0.33-0.92 H EOS x10^3 (test code = 711-2) 0.12 10*3/uL 0.03-0.39 BASO x10^3 (test code = 704-7) 0.04 10*3/uL 0.01-0.07 Lab Interpretation (test code = 76862-9) Abnormal [facility] CenterGAL[facility] ONLY - SYPHILIS [id number] 15:14:00* Test Item Value Reference Range Interpretation Comme nts Syphilis IgG/IgM (test code = 03165-5) Non-reactive Non-reactive GABE (test code = GABE) Non-reactive - No serologic evidence of T. pallidum infection. Cannot exclude incubating or early syphilis. Submit a second specimen in 2-4 weeks if syphilis is clinically suspected. Equivocal - Further testing to follow. Reactive - Further testing to follow. Lab Interpretation (test code = 29883-4) Normal [facility] CenterRHO (D) IMMUNE [id number] 14:48:14* Test Item Value Reference Range Interpretation Comme nts RHIG CANDIDATE? (test code = 5055) No- see comment Patient is not a candidate for RhIg- Patient is Rh Positive.Performed at [facility] Laboratory Services - [facility] Blood [address] [place] [address]Mgwr Free: [phone] No. [id number] [facility] CenterVENOUS CORD [id number] 10:36:00* Test Item Value Reference Range Interpretation Comme nts VENOUS BASE EXCESS, CORD (test code = 6272889589) mEq/L VENOUS PH, CORD (test code = 2512047744) 7.25-7.45 VENOUS PC02, CORD (test code = 1450256413) See_Comment [Automated messa ge] The system which generated this result transmitted reference range: 27 - 49 mmHg. The reference range was not used to interpret this result as normal/abnormal. VENOUS PO2, CORD (test code = 4484320060) See_Comment [Automated me ssage] The system which generated this result transmitted reference range: 17 - 41 mmHg. The reference range was not used to interpret this result as normal/abnormal. VENOUS BICARBONATE, CORD (test code = 6661970793) See_Comment QUES [Automated message] The system which generated this result transmitted reference range: 12 - 29 mEq/L. The reference range was not used to interpret this result as normal/abnormal. [facility] CenterARTERIAL CORD [id number] 10:36:00* Test Item Value Reference Range Interpretation Comme [facility] BASE EXCESS, CORD (test code = 8024641137) mEq/L QUES AC PH, CORD (BEAKER) (test code = 0715502214) 7.18-7.38 PC02, CORD (test code = 4940541545) See_Comment [Automated messa ge] The system which generated this result transmitted reference range: 32 - 66 mmHg. The reference range was not used to interpret this result as normal/abnormal. PO2, CORD (test code = 9948474379) See_Comment [Automated messa ge] The system which generated this result transmitted reference range: 10 - 30 mmHg. The reference range was not used to interpret this result as normal/abnormal. BICARBONATE, CORD (test code = 3730596338) See_Comment [Automated messa ge] The system which generated this result transmitted reference range: 17 - 27 mEq/L. The reference range was not used to interpret this result as normal/abnormal. [facility] CenterHIV 1/2 AG-AB WITH [id number] 03:31:00* Test Item Value Reference Range Interpretation Comme [facility] HIV Semi-quantitative (test code = 07215-6) Negative Negative GABE (test code = GABE) Non-reactive for HIV-1 antigen and HIV-1/HIV-2 antibodies. ?No laboratory evidence of HIV infection. ?Repeat in 2-4 weeks if acute HIV infection is suspected. [facility] CenterHepatitis B Surface Abrpfri1637-25-37 03:22:00 * Test Item Value Reference Range Interpretation Comme nts HBsAg Semi-Quantitative (gideon t code = 5195-3) Negative Negative [facility] CenterType and Screen - ONCE [id number] 03:11:58 * Test Item Value Reference Range Interpretation Comme nts ABO & RH (test code = 20) O POSITIVE Performed at [facility] Laboratory Services - [facility] Blood [place] [address]Toll Free: [phone] No. [id number] IAT (test code = 1185) Negative Performed at [facility] Laboratory [employer] Blood [address] Free: [phone] No. [id number] [facility] CenterCBC with Hyuwraqcprsu3776-21-32 02:35:00* Test Item Value Reference Range Interpretation Comme nts WBC (test code = 6690-2) See_Comment H [Automated messa ge] The system which generated this result transmitted reference range: 4.30 - 11.10 10*3/?L. The reference range was not used to interpret this result as normal/abnormal. RBC (test code = 789-8) See_Comment L [Automated messa ge] The system which generated this result transmitted reference range: 3.93 - 5.25 10*6/?L. The reference range was not used to interpret this result as normal/abnormal. HGB (test code = 718-7) 10.4 g/dL 11.6-15 L HCT (test code = 4544-3) 31.0 % 35.7-45.2 L MCV (test code = 787-2) 89.9 fL 80.6-95.5 MCH (test code = 785-6) 30.1 pg 25.9-32.8 MCHC (test code = 786-4) 33.5 g/dL 31.6-35.1 RDW-SD (test code = 27043-5) 41.7 fL 39-49.9 RDW-CV (test code = 788-0) 12.9 % 12-15.5 PLT (test code = 777-3) See_Comment [Automated messa ge] The system which generated this result transmitted reference range: 166 - 358 10*3/?L. The reference range was not used to interpret this result as normal/abnormal. MPV (test code = 62868-7) 11.4 fL 9.5-12.9 NRBC/100 WBC (test code = 4705982532) See_Comment [Automated me ssage] The system which generated this result transmitted reference range: 0.0 - 10.0 /100 WBCs. The reference range was not used to interpret this result as normal/abnormal. NRBC x10^3 (test code = 6107066037) <0.01 See_Comment [Automated messa ge] The system which generated this result transmitted reference range: 10*3/?L. The reference range was not used to interpret this result as normal/abnormal. GRAN MAT (NEUT) % (test code = 770-8) 70.7 % IMM GRAN % (test code = 7508123046) 1.50 % LYMPH % (test code = 736-9) 17.2 % MONO % (test code = 5905-5) 9.2 % EOS % (test code = 713-8) 0.9 % BASO % (test code = 706-2) 0.5 % GRAN MAT x10^3(ANC) (test code = 4730788456) 7.85 10*3/uL 1.88-7.09 H IMM GRAN x10^3 (test code = 1534068873) 0.17 10*3/uL 0-0.06 H LYMPH x10^3 (test code = 731-0) 1.91 10*3/uL 1.32-3.29 MONO x10^3 (test code = 742-7) 1.02 10*3/uL 0.33-0.92 H EOS x10^3 (test code = 711-2) 0.10 10*3/uL 0.03-0.39 BASO x10^3 (test code = 704-7) 0.06 10*3/uL 0.01-0.07 Lab Interpretation (test code = 71191-0) Abnormal [facility] CenterCOVID-19 (ID NOW RAPID TESTING)2020-01-27 01:23:00* Test Item Value Reference Range Interpretation Comme nts SARS-CoV-2 Rapid ID NOW (test code = 32272-2) Not Detected Not Detected GABE (test code = GABE) ID NOW COVID-19 As say is an isothermal nucleic acid amplification test intended for the qualitative detection of nucleic acid from SARS-CoV-2 viral RNA in nasopharyngeal ([employer]) specimens. It is used under Emergency Use Authorization (EUA) by FDA. The limit of detection (LOD) of the assay is 125 Genome Equivalents/mL. A positive result is indicative of the presence of SARS-CoV-2 RNA. ?Clinical correlation with patient history and other diagnostic information is necessary to determine patient infection status. A negative (Not Detected) result does not preclude SARS-CoV-2 infection. In patients with clinical symptoms and other tests that are consistent with SARS-CoV-2 infection, negative results should be treated as presumptive negative and a new specimen should be tested with alternative PCR molecular test. Invalid: Please collect a new specimen for repeat patient testing if clinically indicated. Lab Interpretation (test code = 42586-6) Normal [facility] URINALYSIS W SPECIFIC [id number] 20:44:00* Test Item Value Reference Range Interpretation Comme nts POCT U SP GRAV (test code = 3255) . 1.005-1.025 POCT PH U (test code = 3254) . 5-8 POCT U LEUK EST (test code = 3263) . Negative - N egative POCT U NIT (test code = 3262) . Negative - Negati ve POCT U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 provider. Pt instructed to keep upcoming appointments for USG and PNV. Pt verbalized understanding. ELIGIO BAY RN 01/11/2023 10:12 AM Eligio Bay RN [facility] 2023-01-11 08:44:28 Formatting of this n ote might be different from the original. Attempt#2. Called, no answer. Left VM. ELIGIO BAY RN 01/11/2023 8:44 AM Eligio Bay RN [facility] 2023-01-10 16:51:04 Formatting of this n ote might be different from the original. Attempt#1. Called, no answer. Left VM. ELIGIO BAY RN 01/10/2023 4:51 PM Eligio Bay RN [facility] 2023-01-10 16:19:40 Formatting of this n ote might be different from the original. No labs ordered at this time, please have her cancel appt, keep her usg and next visit MARGARITA Valdez 01/10/2023 4:20 PM [facility] 2023-01-10 12:16:18 Formatting of this n ote might be different from the original. Seymour Marcelo is a 22 year old female 31 wks 2 days Pt schedule for labs on 01/11 and pt to confirm she already did all labs. Labs were done on 01/04. Please call pt for results and if she needs more labs. [phone] (home) Lianne Walter [facility] 2023-01-05 15:29:01 Formatting of this n ote might be different from the original. Patient informed of results and new orders, verbalized understanding. [facility] 2023-01-05 15:28:30 Formatting of this n ote might be different from the original. See other encounter. [facility] 2023-01-05 15:19:40 Formatting of this n ote might be different from the original. Seymour Marcelo is a 22 year old females is returning missed call from the nurse. Please callback. Thank you. Guerda Oglesby [facility] 2023-01-05 15:11:56 Formatting of this n ote might be different from the original. Attempt#1. Called, no answer. Left VM. ELIGIO BAY RN 01/05/2023 3:12 PM Eligio Bay RN [facility] 2023-01-05 14:53:05 Formatting of this n ote might be different from the original. Please notify the patient she is anemic iron and vitamin c have been sent to her pharmacy on file. She should continue taking her pnv. MARGARITA Valdez 01/05/2023 2:53 PM [facility]
[2024-09-19] MEDS ORDERED: AMPICILLIN/SULBACTAM 3GM/VIAL ONE (23:19)
[2024-09-19] MEDS ORDERED: NA CHLORIDE 0.9% 100 ML ONE (23:19)
[2024-09-19 23:35] LABS: Absolute Basophils 0.1 K/uL (0-0.5); Absolute Eosinophils 0.1 K/uL (0-0.5); Absolute Lymphocytes (CBC) 1.7 K/uL (0.7-4.9); Absolute Monocytes 0.7 K/uL (0.1-1.3); Absolute Neutrophil 6.3 K/uL (1.8-8.0); Basophils % 0.7 % (0-1.3); Eosinophils % 1.3 % (0-4.4); Hematocrit 36.1 % (36.0-45.0); Lymphocytes % 19.4 % (15.3-44.8); MCH 27.5 pg (27.0-35.0); MCHC 33.3 g/dL (32.0-36.0); MCV 82.7 fL (80-100); MPV 8.9 fL (7.6-11.3); Monocytes % 7.9 % (3.3-12.3); Neutrophils % 70.7 % (41.7-73.7); Platelets 276 thou/uL (152-406); RBC Red Blood Cell Count 4.37 M/uL (3.86-4.86); Red Cell Distribution Width 14.8 % (12.1-15.2)
[2024-09-19] MEDS ORDERED: HYDROCODONE/APAP 5/325 MG TAB ONE (23:47)
[2024-09-19 23:49] LABS: Anion Gap 7.8 mEq/L (5.0-15.0); Potassium 3.8 mEq/L (3.5-5.1)
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
[2024-09-20 02:36] VITALS: TEMP 98.3
[2024-09-20 02:39] VITALS: BP 120/80; O2SAT 99
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
== END 2024-09-20 00:52 | disposition home or self-care (01) ==
LOC: ER 21:39
DX: S00.81XA Abrasion of other part of head, initial encounter (principal); S10.81XA Abrasion of other specified part of neck, initial encounter; S00.83XA Contusion of other part of head, initial encounter; Y04.1XXA Assault by human bite, initial encounter
CPT/HCPCS: 36415; 70450; 70486; 70491; 76377; 80048; 84703; 85025; 96365; 99284; J0295; Q9967